=== PATIENT | female | born 1960 | race Hispanic/Latino ===

== ENCOUNTER 2018-06-05 13:28 | Emergency (ER) | payer SELFPAY ==
[2018-06-05] MEDS ORDERED: NORCO 5/325 PO ONE (16:49)
[2018-06-05] MEDS ORDERED: MOTRIN PO ONE (16:49)
[2018-06-05] MEDS ORDERED: ATROVENT IH ONE (16:50)
[2018-06-05] MEDS ORDERED: PROVENTIL IH ONE (16:50)
--- NOTE | 2018-06-05 16:55 | Emergency Department Report ---
HPI - General Chief Complaint: Upper Respiratory Infection Time Seen by Provider: 06/05/18 16:23 - HPI HPI: [address] The patient is a 58-year-old female presenting with chief complaint of cough and congestion. The patient states for the past 16 days she's had "cold" symptoms which include rhinorrhea, subjective fever and nasal congestion. The patient states then developed a cough productive of green sputum as well as body aches. Patient states [id number] medication has not helped. The patient states she has not sought medical attention with the above complaints yet. The patient gets her pain a score of 5-6/10 Location: [See above] Duration: [See above] Quality: Soreness, congestion Severity:5-6/10 Modifying factors: [see above] Context: [see above] Mode of transportation: [not driving] ED Past Medical Hx - Past Medical History Previous Medical History?: No - Surgical History Additional Surgical History: back surgery for staph infection - Family History Family history: no significant - Social History Smoking Status: Current Every Day Smoker (1/2 pack per day) Substance Use Type: None (denies illicit drug use) - Medications Home Medications: Home Medications Medication Instructions Recorded Confirmed Last Taken Type HYDROcodone/APAP 5-325 [[place] 1 each PO Q6HR PRN #12 tablet 11/04/13 Unknown Rx 5/325 mg] Sulfamethoxazole/Trimethoprim 1 each PO BID #20 tablet 11/04/13 Unknown Rx [Bactrim Ds] ALBUTEROL Inhaler (OR & NICU) 2 puff IH QID PRN #1 inhalation 06/05/18 Unknown Rx [Proair] Benzonatate [Tessalon Perles] 100 mg PO Q8HR #30 capsule 06/05/18 Unknown Rx Ciprofloxacin HCl [Ciprofloxacin 500 mg PO BID #20 tablet 06/05/18 Unknown Rx TAB] HYDROcodone/APAP 5-325 [[place] 1 - 2 each PO Q6HR PRN #14 tablet 06/05/18 Unknown Rx 5/325] Ibuprofen [Motrin 800 MG tab] 800 mg PO Q8HR PRN #20 tablet 06/05/18 Unknown Rx ED Review of Systems ROS: Stated complaint: SOB/WHEEZING Other details as noted in HPI Constitutional: fever Eyes: denies: eye pain ENT: congestion Respiratory: cough Cardiovascular: denies: chest pain Endocrine: no symptoms reported Gastrointestinal: denies: abdominal pain Genitourinary: denies: dysuria Musculoskeletal: myalgia Neurological: denies: headache Physical Exam - Physical Exam Vital Signs: Vital Signs 06/05/18 13:31 Temperature 98.5 F Pulse Rate 72 Respiratory 16 Rate Blood Pressure 146/85 O2 Sat by Pulse 96 Oximetry Physical Exam: GENERAL: The patient is well-developed well-nourished female sitting on stretcher appearing to be uncomfortable. [] HEENT: Normocephalic. Atraumatic. Extraocular motions are intact. Patient has moist mucous membranes. NECK: Supple. No meningitic signs are noted. Trachea midline CHEST/LUNGS: Faint expiratory wheeze left base. Occasional cough. There is no respiratory distress noted. HEART/CARDIOVASCULAR: Regular. There is no tachycardia. There is no gallop rub or murmur. ABDOMEN: Abdomen is soft, nontender. Patient has normal bowel sounds. There is no abdominal distention. SKIN: There is no rash. There is no edema. There is no diaphoresis. NEURO: The patient is awake, alert, and oriented. The patient is cooperative. The patient has normal speech MUSCULOSKELETAL: There is no evidence of acute injury. ED Course Vital Signs 06/05/18 13:31 Temperature 98.5 F Pulse Rate 72 Respiratory 16 Rate Blood Pressure 146/85 O2 Sat by Pulse 96 Oximetry ED Medical Decision Making - Lab Data Result diagrams: 06/05/18 16:55 06/05/18 16:55 Laboratory Tests 06/05/18 06/05/18 06/05/18 16:48 16:55 16:55 WBC 12.1 H RBC 5.07 H Hgb 15.2 H Hct 44.7 H MCV 88 MCH 30 MCHC 34 RDW 14.1 Plt Count 281 Lymph % (Auto) 30.7 Caroline % (Auto) 6.2 Eos % (Auto) 6.3 H Baso % (Auto) 1.5 Lymph # 3.7 Caroline # 0.7 Eos # 0.8 H Baso # 0.2 H Seg Neutrophils % 55.3 Seg Neutrophils # 6.7 Sodium 140 Potassium 4.0 Chloride 103.3 Carbon Dioxide 25 Anion Gap 16 BUN 7 Creatinine 0.7 Estimated GFR > 60 BUN/Creatinine Ratio 10 Glucose 99 Calcium 9.6 Influenza A (Rapid) Negative Influenza B (Rapid) Negative - Radiology Data Radiology results: report reviewed (chest x-ray), image reviewed (chest x-ray) interpreted by me: Chest x-ray-no definite focal infiltrates, no pneumothorax [facility] [address] [place] [address] XRay Report Signed Patient: GINGER CUMMINS MR#: [id number] : 1960 Acct:[id number] Age/Sex: 58 / F ADM Date: 06/05/18 Loc: ED Attending Dr: Ordering Physician: CLINT VELAZCO MD Date of Service: 06/05/18 Procedure(s): XR chest routine 2V Accession Number(s): [id number] cc: CLINT VELAZCO MD Fluoro Time In Minutes: FINAL REPORT EXAM: XR CHEST ROUTINE 2V HISTORY: productive cough TECHNIQUE: PA and lateral views of the chest Comparison: None FINDINGS: There is prominence of the interstitial markings in both lungs. There is the appearance of peribronchial thickening in the perihilar regions bilaterally which may represent changes of peribronchial pulmonary infiltrates. There is no evidence of pneumothorax or pleural fluid collection. The cardiomediastinal silhouette is normal in appearance. The bony structures are notable for dextrocurvature of the thoracic spine. IMPRESSION: 1. Peribronchial thickening which may represent changes of peribronchial pulmonary infiltrates in the perihilar regions bilaterally. 2. Dextrocurvature thoracic spine. Transcribed By: ED Dictated By: ELEAZAR ISIDRO MD Electronically Authenticated By: ELEAZAR ISIDRO MD Signed Date/Time: 06/05/181718 DD/ 18 TD/TT: 06/05/181718 - Differential Diagnosis influenza, sinusitis, bronchitis, Critical care attestation.: If time is entered above; I have spent that time in minutes in the direct care of this critically ill patient, excluding procedure time. ED Disposition Clinical Impression: Acute bronchitis, Acute URI Disposition: DC-01 TO HOME OR SELFCARE Is pt being admited?: No Does the pt Need Aspirin: No Condition: Stable Instructions: Acute Bronchitis (ED) Additional Instructions: Return to the emergency department immediately should you develop worsening symptoms, fever, inability to tolerate food or liquid or any other concerns. Prescriptions: ALBUTEROL Inhaler (OR & NICU) [Proair] 2 puff IH QID PRN #1 inhalation PRN Reason: Shortness Of Breath Benzonatate [Tessalon Perles] 100 mg PO Q8HR #30 capsule Ciprofloxacin HCl [Ciprofloxacin TAB] 500 mg PO BID #20 tablet HYDROcodone/APAP 5-325 [[place] 5/325] 1 - 2 each PO Q6HR PRN #14 tablet PRN Reason: Pain Ibuprofen [Motrin 800 MG tab] 800 mg PO Q8HR PRN #20 tablet PRN Reason: Pain, Moderate (4-6) Referrals: PRIMARY CARE,MD [Primary Care Provider] - 3-5 Days [facility] [Outside] - 3-5 Days Time of Disposition: 18:42
[2018-06-05 17:03] LABS: Basophils # (Auto) 0.2 K/mm3 (0.0-0.1); Basophils % (Auto) 1.5 % (0.0-1.8); Eosinophils # (Auto) 0.8 K/mm3 (0.0-0.4); Eosinophils % (Auto) 6.3 % (0.0-4.3); Hematocrit 44.7 % (30.3-42.9); Hemoglobin 15.2 gm/dl (10.1-14.3); Lymphocytes # (Auto) 3.7 K/mm3 (1.2-5.4); Lymphocytes % (Auto) 30.7 % (13.4-35.0); Mean Corpuscular HGB Conc 34 % (30-34); Mean Corpuscular Hemoglobin 30 pg (28-32); Mean Corpuscular Volume 88 fl (79-97); Monocytes # (Auto) 0.7 K/mm3 (0.0-0.8); Monocytes % (Auto) 6.2 % (0.0-7.3); Platelet Count 281 K/mm3 (140-440); Red Blood Count 5.07 M/mm3 (3.65-5.03); Red Cell Distribution Width 14.1 % (13.2-15.2)
--- NOTE | 2018-06-05 17:20 | XRay Report ---
FINAL REPORT EXAM: XR CHEST ROUTINE 2V HISTORY: productive cough TECHNIQUE: PA and lateral views of the chest Comparison: None FINDINGS: There is prominence of the interstitial markings in both lungs. There is the appearance of peribronchial thickening in the perihilar regions bilaterally which may represent changes of peribronchial pulmonary infiltrates. There is no evidence of pneumothorax or pleural fluid collection. The cardiomediastinal silhouette is normal in appearance. The bony structures are notable for dextrocurvature of the thoracic spine. IMPRESSION: 1. Peribronchial thickening which may represent changes of peribronchial pulmonary infiltrates in the perihilar regions bilaterally. 2. Dextrocurvature thoracic spine.
[2018-06-05 17:26] LABS: BUN/Creatinine Ratio 10; Blood Urea Nitrogen 7 mg/dL (7-17); Calcium 9.6 mg/dL (8.4-10.2); Hemolysis Index 4
[2018-06-05 18:50] VITALS: BP 140/81
== END 2018-06-05 18:49 | disposition home or self-care (01) ==
LOC: ED 13:28
DX: J20.9 Acute bronchitis, unspecified (principal); J06.9 Acute upper respiratory infection, unspecified; F17.200 Nicotine dependence, unspecified, uncomplicated
CPT/HCPCS: 36415; 71046; 80048; 85025; 87400; 94640

== ENCOUNTER 2018-06-08 20:16 | Emergency (ER) | payer SELFPAY ==
[2018-06-08 21:42] LABS: Hematocrit 42.1 % (30.3-42.9); Hemoglobin 14.9 gm/dl (10.1-14.3); Mean Corpuscular HGB Conc 35 % (30-34); Mean Corpuscular Hemoglobin 31 pg (28-32); Mean Corpuscular Volume 87 fl (79-97); Platelet Count 271 K/mm3 (140-440); Red Blood Count 4.83 M/mm3 (3.65-5.03); Red Cell Distribution Width 13.8 % (13.2-15.2)
[2018-06-08 21:58] LABS: BUN/Creatinine Ratio 10; Blood Urea Nitrogen 7 mg/dL (7-17); Calcium 9.5 mg/dL (8.4-10.2); Hemolysis Index 3
[2018-06-08 22:07] LABS: Basophils # (Auto) 0.1 K/mm3 (0.0-0.1); Eosinophils # (Auto) 0.9 K/mm3 (0.0-0.4); Eosinophils % (Auto) 8.8 % (0.0-4.3); Lymphocytes # (Auto) 3.5 K/mm3 (1.2-5.4); Lymphocytes % (Auto) 34.4 % (13.4-35.0); Monocytes # (Auto) 0.8 K/mm3 (0.0-0.8); Monocytes % (Auto) 7.4 % (0.0-7.3)
--- NOTE | 2018-06-08 22:42 | XRay Report ---
FINAL REPORT PROCEDURE: XR CHEST ROUTINE 2V TECHNIQUE: PA and lateral chest radiographs were obtained. CPT 39929 HISTORY: Shortness of breath COMPARISON: 06/05/2018 FINDINGS: Heart: Normal. Mediastinum/Vessels: Normal. Lungs/Pleural space: Lungs are hyperinflated. There are no confluent infiltrates or mass lesions. Pleural spaces are clear.. Bony thorax: No acute osseous abnormality. Other: IMPRESSION: COPD No acute pulmonary process.
[2018-06-08 22:55] LABS: Anisocytosis 1+; Platelet Estimate Consistent w Auto; Total Cells Counted 100
[2018-06-09] MEDS ORDERED: SOLU-Medrol IM ONE (00:13)
[2018-06-09] MEDS ORDERED: PROVENTIL IH ONE (00:14)
[2018-06-09] MEDS ORDERED: ATROVENT IH ONE (00:14)
[2018-06-09 00:17] VITALS: BP 154/86
--- NOTE | 2018-06-09 00:19 | Emergency Department Report ---
- General Chief Complaint: Dyspnea/Respdistress Stated Complaint: SOB Time Seen by Provider: 06/08/18 23:59 Source: patient Mode of arrival: Ambulatory Limitations: No Limitations - History of Present Illness Initial Comments: 58-year-old female with cough 2 weeks. Patient reports dry cough, denies fever , reports chest pain with cough. Patient reports she is having coughing spells which causes her to feel like she cannot catch her breath. Patient was seen in ED a few days ago and given prescriptions for albuterol inhaler, Cipro, [place], Motrin, Tessalon perles. Patient states she is not feeling any better. She is still having these coughing spells and shortness of breath. MD Complaint: cough -: week(s) (2) Severity: severe Consistency: intermittent Improves With: nothing Worsens With: nothing Associated Symptoms: cough, chest pain (with cough). denies: fever Treatments Prior to Arrival: antibiotics, other (tessalon perles, norco, albuterol, cipro) - Related Data Previous Rx's Medication Instructions Recorded Last Taken Type HYDROcodone/APAP 5-325 [[place] 1 each PO Q6HR PRN #12 tablet 11/04/13 Unknown Rx 5/325 mg] Sulfamethoxazole/Trimethoprim 1 each PO BID #20 tablet 11/04/13 Unknown Rx [Bactrim Ds] ALBUTEROL Inhaler (OR & NICU) 2 puff IH QID PRN #1 inhalation 06/05/18 Unknown Rx [Proair] Benzonatate [Tessalon Perles] 100 mg PO Q8HR #30 capsule 06/05/18 Unknown Rx Ciprofloxacin HCl [Ciprofloxacin 500 mg PO BID #20 tablet 06/05/18 Unknown Rx TAB] HYDROcodone/APAP 5-325 [[place] 1 - 2 each PO Q6HR PRN #14 tablet 06/05/18 Unknown Rx 5/325] Ibuprofen [Motrin 800 MG tab] 800 mg PO Q8HR PRN #20 tablet 06/05/18 Unknown Rx predniSONE [Prednisone] 50 mg PO DAILY #5 tablet 06/09/18 Unknown Rx Allergies Allergy/AdvReac Type Severity Reaction Status Date / Time No Known Allergies Allergy Unverified 11/04/13 20:53 ED Review of Systems ROS: Stated complaint: SOB Other details as noted in HPI Comment: All other systems reviewed and negative Constitutional: denies: fever Respiratory: cough, shortness of breath Cardiovascular: chest pain (with cough) Musculoskeletal: other (keith leg swelling or pain) ED Past Medical Hx - Past Medical History Previous Medical History?: No - Surgical History Past Surgical History?: No Additional Surgical History: back surgery for staph infection - Social History Smoking Status: Never Smoker - Medications Home Medications: Home Medications Medication Instructions Recorded Confirmed Last Taken Type HYDROcodone/APAP 5-325 [[place] 1 each PO Q6HR PRN #12 tablet 11/04/13 Unknown Rx 5/325 mg] Sulfamethoxazole/Trimethoprim 1 each PO BID #20 tablet 11/04/13 Unknown Rx [Bactrim Ds] ALBUTEROL Inhaler (OR & NICU) 2 puff IH QID PRN #1 inhalation 06/05/18 Unknown Rx [Proair] Benzonatate [Tessalon Perles] 100 mg PO Q8HR #30 capsule 06/05/18 Unknown Rx Ciprofloxacin HCl [Ciprofloxacin 500 mg PO BID #20 tablet 06/05/18 Unknown Rx TAB] HYDROcodone/APAP 5-325 [[place] 1 - 2 each PO Q6HR PRN #14 tablet 06/05/18 Unknown Rx 5/325] Ibuprofen [Motrin 800 MG tab] 800 mg PO Q8HR PRN #20 tablet 06/05/18 Unknown Rx predniSONE [Prednisone] 50 mg PO DAILY #5 tablet 06/09/18 Unknown Rx ED Physical Exam - General Limitations: No Limitations General appearance: alert, in no apparent distress - Head Head exam: Present: atraumatic, normocephalic - Eye Eye exam: Present: normal appearance - ENT ENT exam: Present: mucous membranes moist - Neck Neck exam: Present: normal inspection - Respiratory Respiratory exam: Present: normal lung sounds bilaterally, chest wall tenderness , other (pt actively coughing, nonproductive cough). Absent: respiratory distress - Cardiovascular Cardiovascular Exam: Present: regular rate, normal rhythm - GI/Abdominal GI/Abdominal exam: Present: soft. Absent: tenderness - Extremities Exam Extremities exam: Absent: pedal edema, calf tenderness - Neurological Exam Neurological exam: Present: alert, oriented X3 - Psychiatric Psychiatric exam: Present: normal affect, normal mood - Skin Skin exam: Present: warm, dry, intact ED Course Vital Signs 06/08/18 06/09/18 06/09/18 21:03 00:16 00:46 Temperature 97.9 F 98.2 F Pulse Rate 79 97 H Pulse Rate [ 80 Anterior Bilateral Throughout] Respiratory 18 25 H Rate Respiratory 25 H Rate [Anterior Bilateral Throughout] Blood Pressure 160/108 Blood Pressure 154/86 [Left] O2 Sat by Pulse 98 95 Oximetry ED Medical Decision Making - Lab Data Result diagrams: 06/08/18 21:18 06/08/18 21:18 - Radiology Data Radiology results: report reviewed, image reviewed - Medical Decision Making 58 year old female with bronchitis. Repeat chest x-ray negative. D-dimer negative. Solu-Medrol and neb treatment given here in ED. She is not hypoxic, no respiratory distress. Will give prescription for prednisone - Differential Diagnosis bronchitis, pneumonia, PE, pulm edema Critical care attestation.: If time is entered above; I have spent that time in minutes in the direct care of this critically ill patient, excluding procedure time. ED Disposition Clinical Impression: Bronchitis, Acute bronchitis Disposition: DC-01 TO HOME OR SELFCARE Is pt being admited?: No Condition: Stable Instructions: Acute Bronchitis (ED) Prescriptions: predniSONE [Prednisone] 50 mg PO DAILY #5 tablet Referrals: PRIMARY CARE, [Primary Care Provider] - 3-5 Days Time of Disposition: 01:57
== END 2018-06-09 02:10 | disposition home or self-care (01) ==
LOC: ED 20:16
DX: J20.9 Acute bronchitis, unspecified (principal)
CPT/HCPCS: 36415; 71046; 80048; 85007; 85025; 85379; 96372; 99284; J2930

== ENCOUNTER 2018-12-16 15:50 | Inpatient (IN) | payer SELFPAY ==
[2018-12-16] MEDS ORDERED: PROVENTIL IH ONE ×2 (16:07→16:55)
[2018-12-16] MEDS ORDERED: SOLU-Medrol IM ONE (16:08)
--- NOTE | 2018-12-16 16:10 | Emergency Department Report ---
Chief Complaint: Dyspnea/Respdistress Stated Complaint: MENDOZA Time Seen by Provider: 12/16/18 16:02 - HPI History of Present Illness: AC COPD RECENT DC FROM HOSP SHE DID NOT GET MEDS FILLED ON FOLLOW UP IN IN TRIAGE CO SOB SHE IS BREATHING FAST NO FEVER NKDA PMH CIG SMOKER COPD MSE COMPLETED - Exam Vital Signs: Vital Signs 12/16/18 16:01 Temperature 97.9 F Pulse Rate 92 H Respiratory 26 H Rate Blood Pressure 152/85 [Right] O2 Sat by Pulse 95 Oximetry MSE screening note: Focused history and physical exam performed. Due to findings the following was ordered: ED Disposition for MSE Condition: Stable
[2018-12-16] MEDS ORDERED: MAGNESIUM SULFATE 2GM/50ML 2 GM/50 ML BAG IV ONE (16:47)
[2018-12-16] MEDS ORDERED: ATROVENT IH ONE (16:55)
--- NOTE | 2018-12-16 16:57 | Emergency Department Report ---
HPI - General Chief Complaint: Dyspnea/Respdistress Time Seen by Provider: 12/16/18 16:02 - HPI HPI: Room 3 The patient is a 58-year-old female presenting with a chief complaint respiratory the patient states her symptoms began 5 days ago with rhinorrhea. The patient states she began taking Claritin within her rhinorrhea became thick. The patient states 2 days ago she developed increased work of breathing headache and shortness of breath. Patient states she is taking multiple nebulizers but has not helped. Patient states she's had a cough productive of clear sputum for the past 2-3 days. Patient denies history of fever. Location: Lungs Duration: [See above] Quality: Shortness of breath Severity: Moderate Modifying factors: [see above] Context: [see above] Mode of transportation: [not driving] ED Past Medical Hx - Surgical History Additional Surgical History: back surgery for staph infection - Family History Family history: no significant - Social History Smoking Status: Current Every Day Smoker (1/3 pack per day) Substance Use Type: None - Medications Home Medications: Home Medications Medication Instructions Recorded Confirmed Last Taken Type ALBUTEROL Inhaler (OR & NICU) 2 puff IH QID PRN #1 inhalation 10/09/18 Unknown Rx [ProAir HFA Inhaler] Benzonatate [Tessalon Perles] 100 mg PO Q8HR #14 capsule 10/09/18 Unknown Rx Budesoni/Formotero 160-4.5(Nf) 1 puff IH BID 30 Days inha 10/09/18 Unknown Rx [Symbicort 160-4.5 (Nf)] Fluticasone [Flonase] 100 mcg NS QDAY #1 bottle 10/09/18 Unknown Rx Prednisone [predniSONE 10 mg 10 mg PO .TAPER #1 tab.ds.pk 10/09/18 Unknown Rx (6-Day Pack, 21 Tabs)] guaiFENesin [Robitussin] 200 mg PO Q6H PRN #14 oral.liqd 10/09/18 Unknown Rx ED Review of Systems ROS: Stated complaint: MENDOZA Other details as noted in HPI Constitutional: denies: fever Eyes: denies: eye pain ENT: other (rhinorrhea) Respiratory: cough, shortness of breath, wheezing Cardiovascular: denies: chest pain Endocrine: no symptoms reported Gastrointestinal: denies: abdominal pain Genitourinary: denies: dysuria Musculoskeletal: denies: back pain Neurological: headache Physical Exam - Physical Exam Vital Signs: Vital Signs 12/16/18 12/16/18 16:01 16:07 Temperature 97.9 F 97.9 F Pulse Rate 92 H 92 H Respiratory 26 H 16 Rate Blood Pressure 152/85 Blood Pressure 152/85 [Right] O2 Sat by Pulse 95 95 Oximetry Physical Exam: GENERAL: The patient is well-developed well-nourished female lying on stretcher not appearing to be in acute distress. [] HEENT: Normocephalic. Atraumatic. Extraocular motions are intact. Patient has moist mucous membranes. NECK: Supple. Trachea midline CHEST/LUNGS: Wheezing. HEART/CARDIOVASCULAR: Regular. There is no tachycardia. There is no gallop rub or murmur. ABDOMEN: Abdomen is soft, nontender. Patient has normal bowel sounds. There is no abdominal distention. SKIN: There is no rash. There is no diaphoresis. NEURO: The patient is awake, alert, and oriented. The patient is cooperative. The patient has normal speech MUSCULOSKELETAL: There is no evidence of acute injury. ED Course Vital Signs 12/16/18 12/16/18 16:01 16:07 Temperature 97.9 F 97.9 F Pulse Rate 92 H 92 H Respiratory 26 H 16 Rate Blood Pressure 152/85 Blood Pressure 152/85 [Right] O2 Sat by Pulse 95 95 Oximetry ED Medical Decision Making - Lab Data Result diagrams: 12/16/18 16:49 12/16/18 16:49 Laboratory Tests 12/16/18 12/16/18 12/16/18 16:49 16:49 16:50 WBC 8.6 RBC 4.74 Hgb 14.9 H Hct 41.8 MCV 88 MCH 31 MCHC 36 H RDW 13.7 Plt Count 231 PT 12.9 INR 0.92 APTT 27.7 Sodium 140 Potassium 3.5 L Chloride 106.0 Carbon Dioxide 22 Anion Gap 16 BUN 11 Creatinine 0.7 Estimated GFR > 60 BUN/Creatinine Ratio 16 Glucose 114 H Calcium 9.8 Total Bilirubin 0.30 AST 13 ALT < 5 L Alkaline Phosphatase 56 Total Creatine Kinase CK-MB (CK-2) CK-MB (CK-2) Rel Index Troponin T NT-Pro-B Natriuret Pep Total Protein 6.9 Albumin 4.6 Albumin/Globulin Ratio 2.0 12/16/18 16:50 WBC RBC Hgb Hct MCV MCH MCHC RDW Plt Count PT INR APTT Sodium Potassium Chloride Carbon Dioxide Anion Gap BUN Creatinine Estimated GFR BUN/Creatinine Ratio Glucose Calcium Total Bilirubin AST ALT Alkaline Phosphatase Total Creatine Kinase 123 CK-MB (CK-2) 2.6 CK-MB (CK-2) Rel Index 2.1 Troponin T < 0.010 NT-Pro-B Natriuret Pep 81.06 Total Protein Albumin Albumin/Globulin Ratio Laboratory Tests 12/16/18 12/16/18 12/16/18 16:49 16:49 16:50 WBC 8.6 RBC 4.74 Hgb 14.9 H Hct 41.8 MCV 88 MCH 31 MCHC 36 H RDW 13.7 Plt Count 231 PT 12.9 INR 0.92 APTT 27.7 POC ABG pH POC ABG pCO2 POC ABG pO2 POC ABG HCO3 POC ABG Total CO2 POC ABG O2 Sat POC ABG Base Excess FiO2 Sodium 140 Potassium 3.5 L Chloride 106.0 Carbon Dioxide 22 Anion Gap 16 BUN 11 Creatinine 0.7 Estimated GFR > 60 BUN/Creatinine Ratio 16 Glucose 114 H Calcium 9.8 Total Bilirubin 0.30 AST 13 ALT < 5 L Alkaline Phosphatase 56 Total Creatine Kinase CK-MB (CK-2) CK-MB (CK-2) Rel Index Troponin T NT-Pro-B Natriuret Pep Total Protein 6.9 Albumin 4.6 Albumin/Globulin Ratio 2.0 Influenza A (Rapid) Influenza B (Rapid) 12/16/18 12/16/18 12/16/18 16:50 17:12 19:32 WBC RBC Hgb Hct MCV MCH MCHC RDW Plt Count PT INR APTT POC ABG pH 7.415 POC ABG pCO2 33.5 L POC ABG pO2 62 L POC ABG HCO3 21.5 POC ABG Total CO2 22 POC ABG O2 Sat 92 POC ABG Base Excess -3 FiO2 21 Sodium Potassium Chloride Carbon Dioxide Anion Gap BUN Creatinine Estimated GFR BUN/Creatinine Ratio Glucose Calcium Total Bilirubin AST ALT Alkaline Phosphatase Total Creatine Kinase 123 CK-MB (CK-2) 2.6 CK-MB (CK-2) Rel Index 2.1 Troponin T < 0.010 NT-Pro-B Natriuret Pep 81.06 Total Protein Albumin Albumin/Globulin Ratio Influenza A (Rapid) Negative Influenza B (Rapid) Negative - Radiology Data Radiology results: image reviewed (chest x-ray) interpreted by me: Chest x-ray-no definite focal infiltrates, no pneumothorax - Differential Diagnosis COPD exacerbation Critical care attestation.: If time is entered above; I have spent that time in minutes in the direct care of this critically ill patient, excluding procedure time. ED Disposition Clinical Impression: Shortness of breath, Hypoxia Disposition: OP ADMIT IP TO THIS HOSP Is pt being admited?: Yes Does the pt Need Aspirin: Yes Condition: Fair Referrals: PRIMARY CARE, [Primary Care Provider] - 3-5 Days Time of Disposition: 19:36 (hospitalist notified (Dr Bullock))
[2018-12-16 17:06] LABS: Hematocrit 41.8 % (30.3-42.9); Hemoglobin 14.9 gm/dl (10.1-14.3); Mean Corpuscular HGB Conc 36 % (30-34); Mean Corpuscular Volume 88 fl (79-97); Platelet Count 231 K/mm3 (140-440); Red Blood Count 4.74 M/mm3 (3.65-5.03); Red Cell Distribution Width 13.7 % (13.2-15.2)
[2018-12-16 17:25] LABS: INR 0.92 (0.87-1.13)
[2018-12-16 17:26] LABS: Partial Thromboplastin Time 27.7 Sec. (24.2-36.6)
[2018-12-16 17:27] LABS: Creatine Kinase MB 2.6 ng/mL (0.0-4.0)
[2018-12-16 17:43] LABS: Albumin 4.6 g/dL (3.9-5); BUN/Creatinine Ratio 16; Blood Urea Nitrogen 11 mg/dL (7-17); Calcium 9.8 mg/dL (8.4-10.2); Hemolysis Index 2
[2018-12-16 17:45] LABS: Alanine Aminotransferase < 5 units/L (7-56)
[2018-12-16] MEDS ORDERED: NORCO 5/325 PO ONE (18:09)
--- NOTE | 2018-12-16 19:37 | History and Physical Report ---
History of Present Illness Chief complaint: I cant breathe History of present illness: 58 YO Female with Nicotine Dependence, COPD, Seasonal Allergies presents to ED for evaluation. Pt states that she has experienced shortness of breath over the past 3 days with worsening symptoms over the same time frame. Pt acknowledges rhinorrhea that is persistent despite use of antihistamines. Pt also acknowledges increased frequency of productive cough with clear sputum. Pt states that symptoms have not improved with nebulizer therapy. Pt also acknowledges chest discomfort with deep breathing, that also follows coughing ep isodes. Pt transported to [facility] ED via private vehicle. Pt seen and evaluated in ED and found to have COPD Exacerbation complicated by Acute Respiratory Failure, as well as Nicotine Dependence. Pt treated with Supplemental oxygen, nebulizer therapy, and admitted to Medical floor. Pt prior admission on 10/07/18 reviewed. All listed medication reconciled at time of admission. Pt acknowledges exposure to COPD exacerbation triggers. Pt counseled regarding smoking cessation. Past History Past Medical History: COPD Past Surgical History: No surgical history Social history: single, smoking Family history: hypertension Medications and Allergies Allergies Allergy/AdvReac Type Severity Reaction Status Date / Time No Known Allergies Allergy Verified 12/16/18 16:09 Home Medications Medication Instructions Recorded Confirmed Last Taken Type ALBUTEROL Inhaler (OR & NICU) 2 puff IH QID PRN #1 inhalation 10/09/18 Unknown Rx [ProAir HFA Inhaler] Benzonatate [Tessalon Perles] 100 mg PO Q8HR #14 capsule 10/09/18 Unknown Rx Budesoni/Formotero 160-4.5(Nf) 1 puff IH BID 30 Days inha 10/09/18 Unknown Rx [Symbicort 160-4.5 (Nf)] Fluticasone [Flonase] 100 mcg NS QDAY #1 bottle 10/09/18 Unknown Rx Prednisone [predniSONE 10 mg 10 mg PO .TAPER #1 tab.ds.pk 10/09/18 Unknown Rx (6-Day Pack, 21 Tabs)] guaiFENesin [Robitussin] 200 mg PO Q6H PRN #14 oral.liqd 10/09/18 Unknown Rx Review of Systems Constitutional: no weight loss, no weight gain, no fever, no chills Ears, nose, mouth and throat: no ear pain, no ear discharge, no tinnitis, no decreased hearing, no nose pain Breasts: no change in shape, no swelling, no mass Cardiovascular: no chest pain, no orthopnea, no palpitations, no rapid/irregular heart beat, no edema Respiratory: cough, cough with sputum, excessive sputum, shortness of breath, wheezing, pleurisy Gastrointestinal: no nausea, no vomiting, no diarrhea, no constipation Genitourinary Female: no pelvic pain, no flank pain, no menorrhagia, no dysuria, no urinary frequency, no urgency Rectal: no pain, no incontinence, no bleeding Musculoskeletal: no neck stiffness, no neck pain, no shooting arm pain, no arm numbness/tingling, no low back pain Integumentary: no rash, no pruritis, no redness, no sores, no wounds Neurological: no paralysis, no weakness, no parathesias, no numbness, no tingling Psychiatric: no anxiety, no memory loss, no change in sleep habits, no sleep disturbances, no insomnia, no hypersomnia Endocrine: no cold intolerance, no heat intolerance, no polyphagia, no excessive thirst, no polydipsia Hematologic/Lymphatic: no easy bruising, no easy bleeding, no lymphadenopathy Allergic/Immunologic: no urticaria, no allergic rhinitis, no persistent infections, no angioedema Exam - Constitutional Vitals: Temp Pulse Resp BP Pulse Ox 97.9 F 83 16 125/61 90 12/16/18 16:07 12/16/18 18:58 12/16/18 18:58 12/16/18 19:15 12/16/18 19:15 General appearance: Present: mild distress - EENT Eyes: Present: PERRL ENT: hearing intact, clear oral mucosa - Neck Neck: Present: supple, normal ROM - Respiratory Respiratory effort: labored Respiratory: bilateral: diminished, rhonchi, wheezing - Cardiovascular Heart Sounds: Present: S1 & S2. Absent: rub, click - Extremities Extremities: pulses symmetrical, No edema Peripheral Pulses: within normal limits - Abdominal General gastrointestinal: Present: soft, non-tender, non-distended, normal bowel sounds Female genitourinary: Present: normal - Integumentary Integumentary: Present: clear, warm, dry - Musculoskeletal Musculoskeletal: gait normal, strength equal bilaterally - Psychiatric Psychiatric: appropriate mood/affect, intact judgment & insight - Neurologic Neurologic: CNII-XII intact, moves all extremities Results - Labs CBC & Chem 7: 0405/19 16:49 12/16/18 16:49 Labs: Abnormal lab results 12/16/18 12/16/18 12/16/18 Range/Units 16:49 16:49 19:32 Hgb 14.9 H (10.1-14.3) gm/dl MCHC 36 H (30-34) % POC ABG pCO2 33.5 L (35-45) POC ABG pO2 62 L (80-105) Potassium 3.5 L (3.6-5.0) mmol/L Glucose 114 H (65-100) mg/dL ALT < 5 L (7-56) units/L Assessment and Plan - Patient Problems (1) Acute respiratory failure Current Visit: No Status: Acute Qualifiers: Respiratory failure complication: hypoxia Qualified Code(s): J96.01 - Acute respiratory failure with hypoxia Plan to address problem: Supplemental oxygen, nebulizer therapy, NIPPV as clinically indicated, ABG, smoking cessation, CBC, CTA chest to evaluated for thromboembolic disease. (2) COPD exacerbation Current Visit: No Status: Acute Plan to address problem: Iv steroid therapy, supplemental oxygen, nebulizer therapy, pulse oximetry, chest x ray. (3) Nicotine dependence Current Visit: No Status: Chronic Qualifiers: Nicotine product type: cigarettes Substance use status: in withdrawal Qualified Code(s): F17.213 - Nicotine dependence, cigarettes, with withdrawal Plan to address problem: Nicotine transdermal patch, supportive care, smoking cessation counseleing, Pt informed regarding risk of cardiac arrythmia if she smokes cigarettes while she is using nicotine patch. Pt acknowledges understanding. (4) DVT prophylaxis Current Visit: No Status: Acute Plan to address problem: SCD to BLE while in bed, prophylactic lovenox
[2018-12-16] MEDS ORDERED: ROBITUSSIN PO PRN (19:41)
--- NOTE | 2018-12-16 19:46 | XRay Report ---
PROCEDURE: XR CHEST ROUTINE 2V TECHNIQUE: PA and lateral views of the chest were obtained. HISTORY: COUGH COMPARISONS: Prior chest x-ray 10/06/2018 FINDINGS: Heart size and pulmonary vasculature appear normal. No focal infiltrates masses or effusions are seen . No evidence of pneumothorax. No acute bone abnormalities are identified. Lungs appear mildly hyperi nflated. IMPRESSION: Mild hyperinflation otherwise negative exam. No acute abnormalities identified.. This document is electronically signed by Grant Padilla MD., December 16 2018 07:44:00 PM ET
[2018-12-16] MEDS ORDERED: PROVENTIL IH PRN (20:30)
[2018-12-16] MEDS ORDERED: SODIUM CHLORIDE FLUSH SYRINGE 10 ML IV PRN (20:30)
[2018-12-16] MEDS ORDERED: ZOFRAN IV PRN (20:30)
[2018-12-16] MEDS ORDERED: HABITROL TD ONE (21:00)
[2018-12-16] MEDS ORDERED: NON-FORMULARY (Budesoni/Formotero 160-4.5(Nf) 1 PUFF) IH SCH (22:00)
--- NOTE | 2018-12-16 22:02 | Cat Scan Report ---
PROCEDURE: CT ANGIO CHEST HISTORY: dypsnea FINDINGS: Preliminary report: Contrast-enhanced CT angiography of the chest was performed following the intravenous administration of iodinated contrast. These images demonstrate no CT evidence of pulmonary thromboembolic disease. There is no aortic disse ction. The ascending thoracic aorta is top normal in size at 3.4 cm. There is no acute consolidative pulmonary infiltrate. There is a granuloma in the posterior aspect of the right upper lobe, sagittal image 127. There are other calcified granulomas the left lower lobe p artially calcified nodule image 75. There is a right upper lobe noncalcified pulmonary nodule, image 32, 0.4 cm. there is a right lower l obe pulmonary nodule, image 90, 0.4 cm. There is a right lower lobe pulmonary nodule image 51 0.5 cm. there is a left lower lobe noncalcified nodule, image 76, 0.5 cm There are endplate degenerative changes at all levels of the mid and lower thoracic spine. There is a sclerotic density within T8, 1.5 cm, not definitively characterized but likely bone island There is a 0.4 cm right lobe thyroid nodule, likely cyst In the upper abdomen the adrenal glands are within normal limits. The visualized portion of the liver and spleen are unremarkable. IMPRESSION: No CT evidence of pulmonary thromboembolic disease Calcified pulmonary granulomas. There are also scattered bilateral noncalcified pulmonary nodules, no t characterized. Consider follow-up chest CT in 6 months or as clinically indicated. This document is electronically signed by Anish Pierson MD., December 16 2018 10:01:06 PM ET
[2018-12-16] MEDS: SODIUM CHLORIDE FLUSH SYRINGE 10 ML IV SCH (22:05)
[2018-12-16] MEDS: TESSALON PERLES PO SCH (22:05)
[2018-12-16] MEDS ORDERED: SOLU-Medrol ONE (22:10)
[2018-12-16] MEDS ORDERED: TESSALON PERLES PO ONE (22:11)
[2018-12-16] MEDS: SOLU-Medrol IV SCH (22:12)
[2018-12-16] MEDS ORDERED: LOVENOX SUB-Q ONE (22:17)
[2018-12-16] MEDS ORDERED: PEPCID ONE (22:18)
[2018-12-16] MEDS: PEPCID PO SCH (22:20)
[2018-12-16] MEDS: BROVANA NEBU IH SCH (22:22)
[2018-12-16] MEDS: PULMICORT IH SCH (22:22)
[2018-12-16] MEDS: LOVENOX SUB-Q SCH (22:23)
[2018-12-17] MEDS: TESSALON PERLES PO SCH ×3 (05:51→21:25)
[2018-12-17 06:05] LABS: BUN/Creatinine Ratio 13; Blood Urea Nitrogen 10 mg/dL (7-17); Calcium 8.7 mg/dL (8.4-10.2); Hemolysis Index 13
[2018-12-17] MEDS: PULMICORT IH SCH ×2 (07:51→20:11)
[2018-12-17] MEDS: BROVANA NEBU IH SCH ×2 (07:55→20:11)
[2018-12-17] MEDS: FLONASE NS SCH (09:39)
[2018-12-17] MEDS: SODIUM CHLORIDE FLUSH SYRINGE 10 ML IV SCH ×2 (09:40→21:14)
[2018-12-17] MEDS: SOLU-Medrol IV SCH ×2 (09:40→21:14)
[2018-12-17] MEDS: ZITHROMAX 500 MG in NACL 0.9% 250ML 250 ML IV SCH (09:44)
[2018-12-17] MEDS: PEPCID PO SCH ×2 (10:24→21:13)
[2018-12-17] MEDS: TYLENOL PO PRN ×2 (11:10→19:44)
--- NOTE | 2018-12-17 11:24 | Consultation ---
History of Present Illness Reason for consult: dyspnea, COPD, other (pulmonary nodules) History of present illness: 58-year-old female admitted to the hospital with history of progressive shortness of breath associated with rhinorrhea and recent allergies. Physical examination of this patient and past 6 months due to COPD exacerbation. She is an active smoker being seen by pulmonary already in June last year. Patient complains of some runny nose and chest congestion but no fever. Wheezing and coughing at home. She had decreased her smoking but, complained that she had not been able to get inhalers and smoking cessation medication, because lack of insurance. No additional complaints. Past History Past Medical History: COPD Past Surgical History: No surgical history Social history: single, smoking Family history: hypertension Medications and Allergies Allergies Allergy/AdvReac Type Severity Reaction Status Date / Time No Known Allergies Allergy Verified 12/16/18 16:09 Home Medications Medication Instructions Recorded Confirmed Last Taken Type No Known Home Medications [No 12/16/18 12/16/18 Unknown History Reported Home Medications] Active Meds: Active Medications Acetaminophen (Tylenol) 650 mg PO Q4H PRN PRN Reason: Pain MILD(1-3)/Fever >100.5/KITCHEN Last Admin: 12/17/18 11:10 Dose: 650 mg Documented by: Albuterol (Proventil) 2.5 mg IH Q4HRT PRN PRN Reason: Shortness Of Breath Arformoterol Tartrate (Brovana Nebu) 15 mcg IH Q12HRT [facility] Last Admin: 12/17/18 07:55 Dose: 15 mcg Documented by: Benzonatate (Tessalon Perles) 100 mg PO Q8HR [facility] Last Admin: 12/17/18 05:51 Dose: 100 mg Documented by: Budesonide (Pulmicort) 1 mg IH Q12HRT [facility] Last Admin: 12/17/18 07:51 Dose: 1 mg Documented by: Enoxaparin Sodium (Lovenox) 40 mg SUB-Q QDAY@2200 [facility] Last Admin: 12/16/18 22:23 Dose: 40 mg Documented by: Famotidine (Pepcid) 10 mg PO BID [facility] Last Admin: 12/17/18 10:24 Dose: Not Given Documented by: Fluticasone Propionate (Flonase) 100 mcg NS QDAY [facility] Last Admin: 12/17/18 09:39 Dose: 100 mcg Documented by: Guaifenesin (Robitussin) 200 mg PO Q6H PRN PRN Reason: Cough Azithromycin 500 mg/ Sodium (Chloride) 250 mls @ 250 mls/hr IV Q24HR [facility] Last Admin: 12/17/18 09:44 Dose: 250 mls/hr Documented by: Methylprednisolone Sodium Succinate (Solu-Medrol) 40 mg IV Q12HR [facility] Last Admin: 12/17/18 09:40 Dose: 40 mg Documented by: Ondansetron HCl (Zofran) 4 mg IV Q8H PRN PRN Reason: Nausea And Vomiting Sodium Chloride (Sodium Chloride Flush Syringe 10 Ml) 10 ml IV BID [facility] Last Admin: 12/17/18 09:40 Dose: 10 ml Documented by: Sodium Chloride (Sodium Chloride Flush Syringe 10 Ml) 10 ml IV PRN PRN PRN Reason: LINE FLUSH Physical Examination Vital signs: Vital Signs Temp Pulse Resp BP Pulse Ox 97.9 F 92 H 26 H 152/85 95 12/16/18 16:01 12/16/18 16:01 12/16/18 16:01 12/16/18 16:01 12/16/18 16:01 General appearance: no acute distress Eyes: non-icteric ENT: oropharynx moist Neck: supple, no JVD Ascultation: Bilateral: clear, diminished breath sounds, rales Cardiovascular: regular rate and rhythm Gastrointestinal: normoactive bowel sounds, non-distended Extremities: no cyanosis, no edema Musculoskeletal: no deformities normal mental status, non-focal exam mood appropriate, affect normal Results - Laboratory Findings CBC and BMP: 12/16/18 16:49 12/17/18 04:43 ABG POC ABG pH 7.415 (7.35-7.45) 12/16/18 19:32 POC ABG pCO2 33.5 (35-45) L 12/16/18 19:32 POC ABG pO2 62 (80-105) L 12/16/18 19:32 POC ABG HCO3 21.5 (22-26 mml/L) 12/16/18 19:32 POC ABG Total CO2 22 (23-27mmol/L) 12/16/18 19:32 POC ABG O2 Sat 92 12/16/18 19:32 PT/INR, D-dimer PT 12.9 Sec. (12.2-14.9) 12/16/18 16:50 INR 0.92 (0.87-1.13) 12/16/18 16:50 Abnormal lab findings: Abnormal Labs 12/16/18 12/16/18 12/16/18 16:49 16:49 19:32 Hgb 14.9 H MCHC 36 H POC ABG pCO2 33.5 L POC ABG pO2 62 L Potassium 3.5 L Glucose 114 H ALT < 5 L 12/17/18 04:43 Hgb MCHC POC ABG pCO2 POC ABG pO2 Potassium Glucose 186 H ALT - Diagnostic Findings Chest x-ray: report reviewed, image reviewed CT scan - chest: report reviewed, image reviewed Assessment and Plan COPD exacerbation Acute exacerbation chronic bronchitis Tobacco abuse Noncompliance with smoking cessation regimen Pulmonary nodules-some granulomas but others on the finding, larger 5 mm left l ower lobe Recommendations Albuterol 2.5 milligram nebulizations every 4-6 hours with or without i pratropium Solu-Medrol 40-60 mg IV every 6-8 hours Oxygen support via nasal cannula or mask to maintain oximetry over 93% I agree with radiology with follow-up CT scan in 6 months, noncontrast study. This was discussed with the patient detail and need for follow-up was emphasized Pulmonary office follow-up for COPD and CT/SPN's follow-up [facility] for outpatient assistance after discharge All findings discussed with the patient detail. All questions answered. Thanks
--- NOTE | 2018-12-17 11:31 | Progress Note ---
Assessment and Plan Assessment and plan: 58 YO Female with Nicotine Dependence, COPD, Seasonal Allergies presents to ED for evaluation. Pt states that she has experienced shortness of breath over the past 3 days with worsening symptoms over the same time frame. Pt acknowledges rhinorrhea that is persistent despite use of antihistamines. Pt also acknowledges increased frequency of productive cough with clear sputum. Pt states that symptoms have not improved with nebulizer therapy. Pt also acknowledges chest discomfort with deep breathing, that also follows coughing episodes. Pt transported to [facility] ED via private vehicle. Pt seen and evaluated in ED and found to have COPD Exacerbation complicated by Acute Respiratory Failure, as well as Nicotine Dependence. Pt treated with Supplemental oxygen, nebulizer therapy, and admitted to Medical floor. Pt prior admission on 10/07/18 reviewed. All listed medication reconciled at time of admission. Pt acknowledges exposure to COPD exacerbation triggers. Pt counseled regarding smoking cessation. - Patient Problems (1) Acute respiratory failure secondary to acute bronchitis Current Visit: No Status: Acute Qualifiers: Respiratory failure complication: hypoxia Qualified Code(s): J96.01 - Acute respiratory failure with hypoxia Plan to address problem: Supplemental oxygen, nebulizer therapy, ABG, smoking cessation, CBC, CTA chest to evaluated for thromboembolic disease. did not show any PE but pulmonary nodules and with recommendation for repeat in 6 months patient advised of the finding Pulmonary consulted Continue emperic abx Add, PPI and flonase, patient with seasonal allergies also and recently adopted a stray dog (2) COPD exacerbation Current Visit: No Status: Acute Plan to address problem: Iv steroid therapy, supplemental oxygen, nebulizer therapy, pulse oximetry, chest x ray. (3) Nicotine dependence Current Visit: No Status: Chronic Qualifiers: Nicotine product type: cigarettes Substance use status: in withdrawal Qualified Code(s): F17.213 - Nicotine dependence, cigarettes, with withdrawal Plan to address problem: Nicotine transdermal patch, supportive care, smoking cessation counseleing, Pt informed regarding risk of cardiac arrythmia if she smokes cigarettes while she is using nicotine patch. Pt acknowledges understanding. (4) DVT prophylaxis Current Visit: No Status: Acute Plan to address problem: SCD to BLE while in bed, prophylactic lovenox History Interval history: Patient seen and examined, still with cough, non productive, no new complaints. Hospitalist Physical - Physical exam Narrative exam: VITAL SIGNS: Reviewed. GENERAL: The patient appeared well nourished and normally developed, Vital signs as documented. HEAD: No signs of head trauma. EYES: Pupils are equal. Extraocular motions intact. EARS: Hearing grossly intact. MOUTH: Oropharynx is normal. NECK: No adenopathy, no JVD. No rales, or rhonchi. CARDIAC: Regular rate and rhythm. S1 and S2, without murmurs, gallops, or rubs. VASCULAR: No Edema. Peripheral pulses normal and equal in all extremities. ABDOMEN: Soft, non tender and non distended. No rebound or guarding, and no masses palpated. Bowel Sounds normal. MUSCULOSKELETAL: Good range of motion of all major joints. Extremities without clubbing, cyanosis or edema. NEUROLOGIC EXAM: Alert and oriented x 3 No focal sensory or strength deficits. Speech normal. Follows commands. PSYCHIATRIC: Mood normal. SKIN: No rash or lesions. - Constitutional Vitals: Temp Pulse Resp BP Pulse Ox 97.9 F 87 18 139/72 96 12/17/18 08:13 12/17/18 08:13 12/17/18 10:21 12/17/18 08:13 12/17/18 10:21 General appearance: Present: mild distress Results - Labs CBC & Chem 7: 12/16/18 16:49 12/17/18 04:43 Labs: Laboratory Last Values WBC 8.6 K/mm3 (4.5-11.0) 12/16/18 16:49 RBC 4.74 M/mm3 (3.65-5.03) 12/16/18 16:49 Hgb 14.9 gm/dl (10.1-14.3) H 12/16/18 16:49 Hct 41.8 % (30.3-42.9) 12/16/18 16:49 MCV 88 fl (79-97) 12/16/18 16:49 MCH 31 pg (28-32) 12/16/18 16:49 MCHC 36 % (30-34) H 12/16/18 16:49 RDW 13.7 % (13.2-15.2) 12/16/18 16:49 Plt Count 231 K/mm3 (140-440) 12/16/18 16:49 PT 12.9 Sec. (12.2-14.9) 12/16/18 16:50 INR 0.92 (0.87-1.13) 12/16/18 16:50 APTT 27.7 Sec. (24.2-36.6) 12/16/18 16:50 POC ABG pH 7.415 (7.35-7.45) 12/16/18 19:32 POC ABG pCO2 33.5 (35-45) L 12/16/18 19:32 POC ABG pO2 62 (80-105) L 12/16/18 19:32 POC ABG HCO3 21.5 (22-26 mml/L) 12/16/18 19:32 POC ABG Total CO2 22 (23-27mmol/L) 12/16/18 19:32 POC ABG O2 Sat 92 12/16/18 19:32 POC ABG Base Excess -3 ((-2) - (+3)mmol/L) 12/16/18 19:32 FiO2 21 % 12/16/18 19:32 Sodium 140 mmol/L (137-145) 12/17/18 04:43 Potassium 4.0 mmol/L (3.6-5.0) 12/17/18 04:43 Chloride 104.4 mmol/L (98-107) 12/17/18 04:43 Carbon Dioxide 22 mmol/L (22-30) 12/17/18 04:43 Anion Gap 18 mmol/L 12/17/18 04:43 BUN 10 mg/dL (7-17) 12/17/18 04:43 Creatinine 0.8 mg/dL (0.7-1.2) 12/17/18 04:43 Estimated GFR > 60 ml/min 12/17/18 04:43 BUN/Creatinine Ratio 13 % 12/17/18 04:43 Glucose 186 mg/dL (65-100) H 12/17/18 04:43 Calcium 8.7 mg/dL (8.4-10.2) 12/17/18 04:43 Total Bilirubin 0.30 mg/dL (0.1-1.2) 12/16/18 16:49 AST 13 units/L (5-40) 12/16/18 16:49 ALT < 5 units/L (7-56) L 12/16/18 16:49 Alkaline Phosphatase 56 units/L (35-129) 12/16/18 16:49 Total Creatine Kinase 123 units/L (30-135) 12/16/18 16:50 CK-MB (CK-2) 2.6 ng/mL (0.0-4.0) 12/16/18 16:50 CK-MB (CK-2) Rel Index 2.1 (0-4) 12/16/18 16:50 Troponin T < 0.010 ng/mL (0.00-0.029) 12/16/18 16:50 NT-Pro-B Natriuret Pep 81.06 pg/mL (0-900) 12/16/18 16:50 Total Protein 6.9 g/dL (6.3-8.2) 12/16/18 16:49 Albumin 4.6 g/dL (3.9-5) 12/16/18 16:49 Albumin/Globulin Ratio 2.0 % 12/16/18 16:49 Influenza A (Rapid) Negative (Negative) 12/16/18 17:12 Influenza B (Rapid) Negative (Negative) 12/16/18 17:12 Active Medications - Current Medications Current Medications: Generic Name Dose Route Start Last Admin Trade Name Freq PRN Reason Stop Dose Admin Acetaminophen 650 mg 12/16/18 20:30 12/17/18 11:10 Tylenol PO 650 mg Q4H PRN Administration Pain MILD(1-3)/Fever >100.5/KITCHEN Albuterol 2.5 mg 12/16/18 20:30 Proventil IH Q4HRT PRN Shortness Of Breath Arformoterol Tartrate 15 mcg 12/16/18 20:00 12/17/18 07:55 Brovana Nebu IH 15 mcg Q12HRT [facility] Administration Benzonatate 100 mg 12/16/18 22:00 12/17/18 05:51 Tessalon Perles PO 100 mg Q8HR [facility] Administration Budesonide 1 mg 12/16/18 20:00 12/17/18 07:51 Pulmicort IH 1 mg Q12HRT [facility] Administration Enoxaparin Sodium 40 mg 12/16/18 22:00 12/16/18 22:23 Lovenox SUB-Q 40 mg QDAY@2200 [facility] Administration Famotidine 10 mg 12/16/18 22:00 12/17/18 10:24 Pepcid PO Not Given BID [facility]I Fluticasone Propionate 100 mcg 12/17/18 10:00 12/17/18 09:39 Flonase NS 100 mcg QDAY [facility] Administration Guaifenesin 200 mg 12/16/18 19:41 Robitussin PO Q6H PRN Cough Azithromycin 500 mg/ Sodium 250 mls @ 250 mls/hr 12/17/18 10:00 12/17/18 0 9:44 Chloride IV 250 mls/hr Q24HR [facility] Administration Methylprednisolone Sodium Succinate 40 mg 12/16/18 22:00 12/17/18 09:40 Solu-Medrol IV 40 mg Q12HR [facility] Administration Ondansetron HCl 4 mg 12/16/18 20:30 Zofran IV Q8H PRN Nausea And Vomiting Sodium Chloride 10 ml 12/16/18 22:00 12/17/18 09:40 Sodium Chloride Flush Syringe 10 Ml IV 10 ml BID [facility] Administration Sodium Chloride 10 ml 12/16/18 20:30 Sodium Chloride Flush Syringe 10 Ml IV PRN PRN LINE FLUSH
[2018-12-17] MEDS ORDERED: AMBIEN PO PRN (14:38)
[2018-12-17] MEDS: LOVENOX SUB-Q SCH (21:17)
[2018-12-18] MEDS: TESSALON PERLES PO SCH (06:33)
[2018-12-18] MEDS: BROVANA NEBU IH SCH (08:05)
[2018-12-18] MEDS: PULMICORT IH SCH (08:05)
[2018-12-18 09:14] VITALS: BP 130/71
[2018-12-18] MEDS: SOLU-Medrol IV SCH (10:00)
[2018-12-18] MEDS: FLONASE NS SCH (10:00)
[2018-12-18] MEDS: SODIUM CHLORIDE FLUSH SYRINGE 10 ML IV SCH (10:00)
[2018-12-18] MEDS: PEPCID PO SCH (10:00)
[2018-12-18] MEDS: ZITHROMAX 500 MG in NACL 0.9% 250ML 250 ML IV SCH (10:03)
--- NOTE | 2018-12-18 10:50 | Discharge Summary ---
Providers - Providers Date of Admission: 12/16/18 20:30 Attending physician: KERA BAGLEY MD 12/17/18 08:12 Consult to Physician [CONS] Routine Comment: Consulting Provider: DULCE COLBY Physician Instructions: Reason For Exam: SHORTNESS OF BREATH, [facility] Reason for admission: COPD Exacerbation Condition: Stable Hospital course: 58 YO Female with Nicotine Dependence, COPD, Seasonal Allergies presents to ED for evaluation. Pt states that she has experienced shortness of breath over the past 3 days with worsening symptoms over the same time frame. Pt acknowledges rhinorrhea that is persistent despite use of antihistamines. Pt also acknowledges increased frequency of productive cough with clear sputum. Pt states that symptoms have not improved with nebulizer therapy. Pt also acknowledges chest discomfort with deep breathing, that also follows coughing episodes. Pt transported to [facility] ED via private vehicle. Pt seen and evaluated in ED and found to have COPD Exacerbation complicated by Acute Respiratory Failure, as well as Nicotine Dependence. Pt treated with Supplemental oxygen, nebulizer therapy, and admitted to Medical floor. Pt prior admission on 10/07/18 reviewed. All listed medication reconciled at time of admission. Pt acknowledges exposure to COPD exacerbation triggers. Pt counseled regarding smoking cessation. * Pulmonary evaluated the patient and placed the patient on Tapering steroids, antibiotics, and nebs * counselling provided to the patient about tobacco cessation and seasonal allergy (1) Acute respiratory failure secondary to acute bronchitis (2) COPD exacerbation (3) Nicotine dependence (4) Hypokalemia Disposition: PA-01 TO HOME OR SELFCARE Time spent for discharge: 35 MINS Core Measure Documentation - Palliative Care Palliative Care/ Comfort Measures: Not Applicable - Core Measures Any of the following diagnoses?: none Exam - Physical Exam Narrative exam: VITAL SIGNS: Reviewed. GENERAL: The patient appeared well nourished and normally developed, Vital si gns as documented. HEAD: No signs of head trauma. EYES: Pupils are equal. Extraocular motions intact. EARS: Hearing grossly intact. MOUTH: Oropharynx is normal. NECK: No adenopathy, no JVD. No rales, or rhonchi. CARDIAC: Regular rate and rhythm. S1 and S2, without murmurs, gallops, or rubs. VASCULAR: No Edema. Peripheral pulses normal and equal in all extremities. ABDOMEN: Soft, non tender and non distended. No rebound or guarding, and no masses palpated. Bowel Sounds normal. MUSCULOSKELETAL: Good range of motion of all major joints. Extremities without clubbing, cyanosis or edema. NEUROLOGIC EXAM: Alert and oriented x 3 No focal sensory or strength deficits. Speech normal. Follows commands. PSYCHIATRIC: Mood normal. SKIN: No rash or lesions. - Constitutional Vitals: Temp Pulse Resp BP Pulse Ox 98.0 F 68 20 130/71 94 12/18/18 08:50 12/18/18 08:50 12/18/18 08:50 12/18/18 08:50 12/18/18 08:50 Plan Follow up with: PRIMARY CAREMD [Referring] - 3-5 Days ADRIANE STONER MD [Staff Physician] - 7 Days Forms: Discharge Signature Page Prescriptions: Fluticasone/Salmeterol [Advair 250-50 Diskus] 1 each IH BID 30 Days blst.w.dev Prednisone [predniSONE 10 mg (6-Day Pack, 21 Tabs)] 10 mg PO .TAPER #1 tab.ds.pk ALBUTEROL Inhaler(NF) [VENTOLIN Inhaler(NF)] 1 puff IH QID PRN 30 Days inha PRN Reason: Shortness Of Breath Azithromycin [Zithromax TAB] 500 mg PO QDAY #5 tablet
== END 2018-12-18 13:58 | disposition home or self-care (01) | DRG 189 ==
LOC: ED 15:50 → 4A 20:30
PROVIDERS: ADMIT Internal Medicine; ATTEND Internal Medicine
PROC: 4A033R1 Measurement of Arterial Saturation, Peripheral, Percutaneous Approach (ICD-10-PCS; principal; 2018-12-16)
DX: J96.01 Acute respiratory failure with hypoxia (principal); J44.0 Chronic obstructive pulmonary disease with (acute) lower respiratory infection; J44.1 Chronic obstructive pulmonary disease with (acute) exacerbation; F17.213 Nicotine dependence, cigarettes, with withdrawal; J20.9 Acute bronchitis, unspecified; E87.6 Hypokalemia; Z71.6 Tobacco abuse counseling; Z82.49 Family history of ischemic heart disease and other diseases of the circulatory system; Z91.19 Patient's noncompliance with other medical treatment and regimen
CPT/HCPCS: 36415; 71046; 71275; 80048; 80053; 82550; 82553; 82803; 83880; 84484; 85027; 85610; 85730; 87116; 87400; 93005; 93010; 94640; 94760; 96365; 96366; 96372; 99406; G0378; J0456; J1650; J2920; J2930; J3475; J7050; Q9967

== ENCOUNTER 2019-02-02 09:40 | Inpatient (IN) | payer SELFPAY ==
[2019-02-02] MEDS ORDERED: MAGNESIUM SULFATE 2GM/50ML 2 GM/50 ML BAG IV ONE (10:35)
[2019-02-02] MEDS ORDERED: SOLU-Medrol IV ONE (10:35)
[2019-02-02] MEDS ORDERED: DUONEB *Not for PRN Use IH ONE (10:35)
--- NOTE | 2019-02-02 10:35 | Emergency Department Report ---
ED General Adult HPI - General Chief complaint: Dyspnea/Respdistress Stated complaint: SOB Time Seen by Provider: 02/02/19 10:23 Source: patient Mode of arrival: Ambulatory Limitations: No Limitations - History of Present Illness Initial comments: This is a 58-year-old lady with COPD on home O2. She states that she has used her home nebulizer treatments without adequate benefit. She is not currently on prednisone. She denies productive cough. She has not had chest pain. She denies fever and/or chills. -: Gradual, days(s) Consistency: constant Improves with: none Worsens with: none Associated Symptoms: denies other symptoms - Related Data Previous Rx's Medication Instructions Recorded Last Taken Type ALBUTEROL Inhaler(NF) [VENTOLIN 1 puff IH QID PRN 30 Days inha 12/18/18 Unknown Rx Inhaler(NF)] Azithromycin [Zithromax TAB] 500 mg PO QDAY #5 tablet 12/18/18 Unknown Rx Benzonatate [Tessalon Perles] 100 mg PO Q8HR capsule 12/18/18 Unknown Rx Fluticasone [Flonase] 100 mcg NS QDAY bottle 12/18/18 Unknown Rx Fluticasone/Salmeterol [Advair 1 each IH BID 30 Days blst.w.dev 12/18/18 Unknown Rx 250-50 Diskus] Prednisone [predniSONE 10 mg 10 mg PO .TAPER #1 tab.ds.pk 12/18/18 Unknown Rx (6-Day Pack, 21 Tabs)] guaiFENesin [Robitussin] 200 mg PO Q6H PRN oral.liqd 12/18/18 Unknown Rx Allergies Allergy/AdvReac Type Severity Reaction Status Date / Time No Known Allergies Allergy Verified 12/16/18 16:09 ED Review of Systems ROS: Stated complaint: SOB Other details as noted in HPI Constitutional: denies: chills, fever Eyes: denies: eye pain, eye discharge, vision change ENT: denies: ear pain, throat pain Respiratory: shortness of breath, wheezing. denies: cough Cardiovascular: denies: chest pain, palpitations Endocrine: no symptoms reported Gastrointestinal: denies: abdominal pain, nausea, diarrhea Genitourinary: denies: urgency, dysuria, discharge Musculoskeletal: denies: back pain, joint swelling, arthralgia Skin: denies: rash, lesions Neurological: denies: headache, weakness, paresthesias Psychiatric: denies: anxiety, depression Hematological/Lymphatic: denies: easy bleeding, easy bruising ED Past Medical Hx - Past Medical History Previous Medical History?: Yes Hx Congestive Heart Failure: No Hx Diabetes: No Hx Asthma: No Hx COPD: Yes - Surgical History Past Surgical History?: Yes Additional Surgical History: back surgery for staph infection - Social History Smoking Status: Current Every Day Smoker Substance Use Type: None - Medications Home Medications: Home Medications Medication Instructions Recorded Confirmed Last Taken Type ALBUTEROL Inhaler(NF) [VENTOLIN 1 puff IH QID PRN 30 Days inha 12/18/18 Unknown Rx Inhaler(NF)] Azithromycin [Zithromax TAB] 500 mg PO QDAY #5 tablet 12/18/18 Unknown Rx Benzonatate [Tessalon Perles] 100 mg PO Q8HR capsule 12/18/18 Unknown Rx Fluticasone [Flonase] 100 mcg NS QDAY bottle 12/18/18 Unknown Rx Fluticasone/Salmeterol [Advair 1 each IH BID 30 Days blst.w.dev 12/18/18 Unknown Rx 250-50 Diskus] Prednisone [predniSONE 10 mg 10 mg PO .TAPER #1 tab.ds.pk 12/18/18 Unknown Rx (6-Day Pack, 21 Tabs)] guaiFENesin [Robitussin] 200 mg PO Q6H PRN oral.liqd 12/18/18 Unknown Rx ED Physical Exam - General Limitations: No Limitations General appearance: alert, in no apparent distress - Head Head exam: Present: atraumatic, normocephalic - Eye Eye exam: Present: normal appearance. Absent: scleral icterus - ENT ENT exam: Present: mucous membranes moist - Neck Neck exam: Present: normal inspection. Absent: tenderness, meningismus - Respiratory Respiratory exam: Absent: respiratory distress - Cardiovascular Cardiovascular Exam: Present: regular rate, normal rhythm. Absent: systolic murmur, diastolic murmur, rubs, gallop - GI/Abdominal GI/Abdominal exam: Present: soft, normal bowel sounds - Extremities Exam Extremities exam: Present: normal inspection - Back Exam Back exam: Present: normal inspection - Neurological Exam Neurological exam: Present: alert, oriented X3 - Psychiatric Psychiatric exam: Present: normal affect, normal mood - Skin Skin exam: Present: warm, dry, intact, normal color. Absent: rash ED Course Vital Signs 02/02/19 02/02/19 02/02/19 09:53 10:32 10:46 Temperature 98.5 F 99.4 F Pulse Rate 81 77 Pulse Rate [ 74 Anterior Bilateral Throughout] Respiratory 24 18 Rate Respiratory 20 Rate [Anterior Bilateral Throughout] Blood Pressure 120/71 Blood Pressure 126/85 [Right] O2 Sat by Pulse 94 94 Oximetry 02/02/19 02/02/19 11:08 12:35 Temperature 99 F Pulse Rate 73 Pulse Rate [ 76 Anterior Bilateral Throughout] Respiratory 18 Rate Respiratory 18 Rate [Anterior Bilateral Throughout] Blood Pressure Blood Pressure 124/58 [Right] O2 Sat by Pulse 95 Oximetry - Reevaluation(s) Reevaluation #1: Persistent wheezing. Pulse oximetry still 94% on room air. Work of breathing is adequate. Patient speaking in full sentences. She is admitted by Dr. Bronson for further care. I will order another albuterol treatment. 02/02/19 12:47 ED Medical Decision Making - Lab Data Result diagrams: 02/02/19 10:49 02/02/19 10:49 Laboratory Results - last 24 hr 02/02/19 02/02/19 02/02/19 10:49 10:49 10:49 WBC 5.3 RBC 4.49 Hgb 14.0 Hct 40.0 MCV 89 MCH 31 MCHC 35 H RDW 13.8 Plt Count 146 Lymph % (Auto) 12.9 L [place] % (Auto) 14.3 H Eos % (Auto) 0.1 Baso % (Auto) 0.9 Lymph # 0.7 L [place] # 0.8 Eos # 0.0 Baso # 0.0 Seg Neutrophils % 71.8 H Seg Neutrophils # 3.8 PT 13.9 INR 1.01 APTT 29.4 Sodium 135 L Potassium 4.0 Chloride 97.2 L Carbon Dioxide 24 Anion Gap 18 BUN 5 L Creatinine 0.7 Estimated GFR > 60 BUN/Creatinine Ratio 7 Glucose 110 H Lactic Acid Calcium 8.5 Magnesium 1.70 Total Bilirubin 0.40 Direct Bilirubin < 0.2 AST 11 ALT < 5 L Alkaline Phosphatase 45 Troponin T NT-Pro-B Natriuret Pep Total Protein 6.3 Albumin 4.1 Albumin/Globulin Ratio 1.9 02/02/19 02/02/19 10:49 10:49 WBC RBC Hgb Hct MCV MCH MCHC RDW Plt Count Lymph % (Auto) [place] % (Auto) Eos % (Auto) Baso % (Auto) Lymph # [place] # Eos # Baso # Seg Neutrophils % Seg Neutrophils # PT INR APTT Sodium Potassium Chloride Carbon Dioxide Anion Gap BUN Creatinine Estimated GFR BUN/Creatinine Ratio Glucose Lactic Acid 1.00 Calcium Magnesium Total Bilirubin Direct Bilirubin AST ALT Alkaline Phosphatase Troponin T < 0.010 NT-Pro-B Natriuret Pep 229.2 Total Protein Albumin Albumin/Globulin Ratio - EKG Data EKG shows normal: sinus rhythm, axis, intervals, ST-T waves Rate: normal - EKG Data Interpretation: other (QS in V2 consider old ASMI, no acute ischemic changes) - Radiology Data Radiology results: report reviewed (no acute changes) Critical care attestation.: If time is entered above; I have spent that time in minutes in the direct care of this critically ill patient, excluding procedure time. ED Disposition Clinical Impression: Hypoxia, COPD exacerbation Disposition: - OP ADMIT IP TO THIS HOSP Is pt being admited?: Yes Does the pt Need Aspirin: Yes Condition: Stable Instructions: Chronic Obstructive Pulmonary Disease (ED) Referrals: PRIMARY CARE, [Primary Care Provider] - 3-5 Days Time of Disposition: 12:49
--- NOTE | 2019-02-02 11:03 | XRay Report ---
AP CHEST: HISTORY: Hypertension AP view of the chest demonstrates a normal mediastinal and cardiac contour with clear lungs and normal bony and soft tissue structures. IMPRESSION: Unremarkable AP chest. No significant change since 12/16/18.
[2019-02-02 11:07] LABS: Basophils % (Auto) 0.9 % (0.0-1.8); Eosinophils % (Auto) 0.1 % (0.0-4.3); Lymphocytes # (Auto) 0.7 K/mm3 (1.2-5.4); Lymphocytes % (Auto) 12.9 % (13.4-35.0); Mean Corpuscular HGB Conc 35 % (30-34); Mean Corpuscular Volume 89 fl (79-97); Monocytes # (Auto) 0.8 K/mm3 (0.0-0.8); Monocytes % (Auto) 14.3 % (0.0-7.3); Platelet Count 146 K/mm3 (140-440); Red Blood Count 4.49 M/mm3 (3.65-5.03); Red Cell Distribution Width 13.8 % (13.2-15.2)
[2019-02-02 11:34] LABS: Albumin 4.1 g/dL (3.9-5); BUN/Creatinine Ratio 7; Blood Urea Nitrogen 5 mg/dL (7-17); Calcium 8.5 mg/dL (8.4-10.2); Hemolysis Index 7
[2019-02-02 11:36] LABS: Alanine Aminotransferase < 5 units/L (7-56); Bilirubin,Direct < 0.2 mg/dL (0-0.2)
[2019-02-02 11:45] LABS: INR 1.01 (0.87-1.13); Partial Thromboplastin Time 29.4 Sec. (24.2-36.6)
[2019-02-02] MEDS ORDERED: TYLENOL PO ONE (12:35)
[2019-02-02] MEDS ORDERED: TYLENOL ONE (12:36)
[2019-02-02 12:58] LABS: Bilirubin,Urine NEG (Negative); Blood,Urine MOD (Negative); Color,Urine Yellow (Yellow); Mucus,Urine FEW /HPF; Protein,Urine <15 mg/dL mg/dL (Negative); Urobilinogen,Urine < 2.0 mg/dL (<2.0); WBC,Urine < 1.0 /HPF (0.0-6.0)
[2019-02-02] MEDS ORDERED: BABY ASPIRIN ONE (13:28)
[2019-02-02] MEDS: BABY ASPIRIN PO SCH (13:35)
[2019-02-02] MEDS ORDERED: DUONEB *Not for PRN Use IH SCH (21:15)
--- NOTE | 2019-02-02 21:41 | History and Physical Report ---
History of Present Illness Date of examination: 02/02/19 Date of admission: 02/02/19 12:16 Chief complaint: Shortness of breath and wheezing for 1 week History of present illness: 58-year-old female with history of COPD and allergic rhinitis comes in for increasing shortness of breath for last 1 week. Cough productive of mucoid yellow sputum. Not responding to home nebulizer treatments. Patient is on home oxygen. No fever or chills. No recent travel. No exacerbating or precipitating factors. Past Medical History Previous Medical History?: Yes COPD: Yes Surgical History Past Surgical History?: Yes Additional Surgical History: back surgery for staph infection Social History Smoking Status: Current Every Day Smoker Substance Use Type: None Family history hypertension Medications Home Medications: Home Medications Medication Instructions Recorded Confirmed Last Taken Type ALBUTEROL Inhaler(NF) [VENTOLIN 1 puff IH QID PRN 30 Days inha 12/18/18 Unknown Rx Inhaler(NF)] Azithromycin [Zithromax TAB] 500 mg PO QDAY #5 tablet 12/18/18 Unknown Rx Benzonatate [Tessalon Perles] 100 mg PO Q8HR capsule 12/18/18 Unknown Rx Fluticasone [Flonase] 100 mcg NS QDAY bottle 12/18/18 Unknown Rx Fluticasone/Salmeterol [Advair 1 each IH BID 30 Days blst.w.dev 12/18/18 Unknown Rx 250-50 Diskus] Prednisone [predniSONE 10 mg 10 mg PO .TAPER #1 tab.ds.pk 12/18/18 Unknown Rx (6-Day Pack, 21 Tabs)] guaiFENesin [Robitussin] 200 mg PO Q6H PRN oral.liqd 12/18/18 Unknown Rx Review of Systems ROS: Stated complaint: SOB Other details as noted in HPI Constitutional: denies: chills, fever Eyes: denies: eye pain, eye discharge, vision change ENT: denies: ear pain, throat pain Respiratory: shortness of breath, wheezing. denies: cough Cardiovascular: denies: chest pain, palpitations Endocrine: no symptoms reported Gastrointestinal: denies: abdominal pain, nausea, diarrhea Genitourinary: denies: urgency, dysuria, discharge Musculoskeletal: denies: back pain, joint swelling, arthralgia Skin: denies: rash, lesions Neurological: denies: headache, weakness, paresthesias Psychiatric: denies: anxiety, depression Hematological/Lymphatic: denies: easy bleeding, easy bruising 14 point review of systems done otherwise negative. Medications and Allergies Allergies Allergy/AdvReac Type Severity Reaction Status Date / Time No Known Allergies Allergy Verified 12/16/18 16:09 Home Medications Medication Instructions Recorded Confirmed Last Taken Type No Known Home Medications [No 02/02/19 02/02/19 Unknown History Reported Home Medications] Active Meds: Active Medications Albuterol/Ipratropium (Duoneb *Not For Prn Use*) 1 ampul IH Q6HRT [facility] Last Admin: 02/02/19 21:23 Dose: 1 ampul Documented by: Arformoterol Tartrate (Brovana Nebu) 15 mcg IH Q12HRT [facility] Aspirin (Baby Aspirin) 81 mg PO QDAY [facility] Last Admin: 02/02/19 13:35 Dose: 81 mg Documented by: Budesonide (Pulmicort) 0.5 mg IH Q12HRT [facility] Exam - Constitutional Vitals: Temp Pulse Resp BP Pulse Ox 98.2 F 78 20 109/64 92 02/02/19 17:02 02/02/19 21:32 02/02/19 21:32 02/02/19 17:02 02/02/19 21:11 General appearance: Present: mild distress, well-nourished - EENT Eyes: Present: PERRL ENT: hearing intact, clear oral mucosa - Neck Neck: Present: supple, normal ROM - Respiratory Respiratory effort: normal Respiratory: bilateral: diminished, rhonchi, wheezing - Cardiovascular Heart rate: 78 Rhythm: regular Heart Sounds: Present: S1 & S2. Absent: rub, click - Extremities Extremities: no ischemia, pulses intact, pulses symmetrical, No edema Peripheral Pulses: within normal limits - Abdominal General gastrointestinal: Present: soft, non-tender, non-distended, normal bowel sounds Female genitourinary: Present: normal - Integumentary Integumentary: Present: clear, warm, dry - Musculoskeletal Musculoskeletal: gait normal, strength equal bilaterally - Psychiatric Psychiatric: appropriate mood/affect, intact judgment & insight - Neurologic Neurologic: CNII-XII intact, moves all extremities - Allied Health Allied health notes reviewed: nursing, case management Results - Labs CBC & Chem 7: 02/02/19 10:49 02/02/19 10:49 Labs: Laboratory Last Values WBC 5.3 K/mm3 (4.5-11.0) 02/02/19 10:49 RBC 4.49 M/mm3 (3.65-5.03) 02/02/19 10:49 Hgb 14.0 gm/dl (10.1-14.3) 02/02/19 10:49 Hct 40.0 % (30.3-42.9) 02/02/19 10:49 MCV 89 fl (79-97) 02/02/19 10:49 MCH 31 pg (28-32) 02/02/19 10:49 MCHC 35 % (30-34) H 02/02/19 10:49 RDW 13.8 % (13.2-15.2) 02/02/19 10:49 Plt Count 146 K/mm3 (140-440) 02/02/19 10:49 Lymph % (Auto) 12.9 % (13.4-35.0) L 02/02/19 10:49 [place] % (Auto) 14.3 % (0.0-7.3) H 02/02/19 10:49 Eos % (Auto) 0.1 % (0.0-4.3) 02/02/19 10:49 Baso % (Auto) 0.9 % (0.0-1.8) 02/02/19 10:49 Lymph # 0.7 K/mm3 (1.2-5.4) L 02/02/19 10:49 [place] # 0.8 K/mm3 (0.0-0.8) 02/02/19 10:49 Eos # 0.0 K/mm3 (0.0-0.4) 02/02/19 10:49 Baso # 0.0 K/mm3 (0.0-0.1) 02/02/19 10:49 Seg Neutrophils % 71.8 % (40.0-70.0) H 02/02/19 10:49 Seg Neutrophils # 3.8 K/mm3 (1.8-7.7) 02/02/19 10:49 PT 13.9 Sec. (12.2-14.9) 02/02/19 10:49 INR 1.01 (0.87-1.13) 02/02/19 10:49 APTT 29.4 Sec. (24.2-36.6) 02/02/19 10:49 Sodium 135 mmol/L (137-145) L 02/02/19 10:49 Potassium 4.0 mmol/L (3.6-5.0) 02/02/19 10:49 Chloride 97.2 mmol/L (98-107) L 02/02/19 10:49 Carbon Dioxide 24 mmol/L (22-30) 02/02/19 10:49 18 mmol/L 02/02/19 10:49 BUN 5 mg/dL (7-17) L 02/02/19 10:49 0.7 mg/dL (0.7-1.2) 02/02/19 10:49 Estimated GFR > 60 ml/min 02/02/19 10:49 7 % 02/02/19 10:49 Glucose 110 mg/dL (65-100) H 02/02/19 10:49 Lactic Acid 1.00 mmol/L (0.7-2.0) 02/02/19 10:49 Calcium 8.5 mg/dL (8.4-10.2) 02/02/19 10:49 Magnesium 1.70 mg/dL (1.7-2.3) 02/02/19 10:49 0.40 mg/dL (0.1-1.2) 02/02/19 10:49 < 0.2 mg/dL (0-0.2) 02/02/19 10:49 AST 11 units/L (5-40) 02/02/19 10:49 ALT < 5 units/L (7-56) L 02/02/19 10:49 45 units/L (35-129) 02/02/19 10:49 < 0.010 ng/mL (0.00-0.029) 02/02/19 10:49 NT-Pro-B Natriuret Pep 229.2 pg/mL (0-900) 02/02/19 10:49 6.3 g/dL (6.3-8.2) 02/02/19 10:49 4.1 g/dL (3.9-5) 02/02/19 10:49 1.9 % 02/02/19 10:49 Yellow (Yellow) 02/02/19 12:12 Clear (Clear) 02/02/19 12:12 5.0 (5.0-7.0) 02/02/19 12:12 Ur Specific [place] 1.016 (1.003-1.030) 02/02/19 12:12 <15 mg/dl mg/dL (Negative) 02/02/19 12:12 Neg mg/dL (Negative) 02/02/19 12:12 80 mg/dL (Negative) 02/02/19 12:12 Mod (Negative) 02/02/19 12:12 Neg (Negative) 02/02/19 12:12 Neg (Negative) 02/02/19 12:12 < 2.0 mg/dL (<2.0) 02/02/19 12:12 Ur Leukocyte Esterase Neg (Negative) 02/02/19 12:12 < 1.0 /HPF (0.0-6.0) 02/02/19 12:12 3.0 /HPF (0.0-6.0) 02/02/19 12:12 U Epithel Cells (Auto) 3.0 /HPF (0-13.0) 02/02/19 12:12 Few /HPF 02/02/19 12:12 Short CBC 02/02/19 Range/Units 10:49 WBC 5.3 (4.5-11.0) K/mm3 Hgb 14.0 (10.1-14.3) gm/dl Hct 40.0 (30.3-42.9) % Plt Count 146 (140-440) K/mm3 BMP 02/02/19 10:49 Sodium 135 L Potassium 4.0 Chloride 97.2 L Carbon Dioxide 24 BUN 5 L Creatinine 0.7 Glucose 110 H Calcium 8.5 Cardiac Enzymes 02/02/19 Range/Units 10:49 Troponin T < 0.010 (0.00-0.029) ng/mL Liver Function 02/02/19 Range/Units 10:49 Total Bilirubin 0.40 (0.1-1.2) mg/dL Direct Bilirubin < 0.2 (0-0.2) mg/dL AST 11 (5-40) units/L ALT < 5 L (7-56) units/L Alkaline Phosphatase 45 (35-129) units/L Albumin 4.1 (3.9-5) g/dL Urine 05/23/19 Range/Units 12:12 Urine Color Yellow (Yellow) Urine pH 5.0 (5.0-7.0) Ur Specific [place] 1.016 (1.003-1.030) Urine Protein <15 mg/dl (Negative) mg/dL Urine Glucose (UA) Neg (Negative) mg/dL - Imaging and Cardiology EKG: report reviewed (sinus rhythm, 80/m, no acute ST-T wave changes) Chest x-ray: report reviewed (no acute findings) Assessment and Plan Advance Directives: Yes (full code) VTE prophylaxis?: Chemical Plan of care discussed with patient/family: Yes - Patient Problems (1) Acute respiratory failure Current Visit: No Status: Acute Qualifiers: Respiratory failure complication: hypoxia Qualified Code(s): J96.01 - Acute respiratory failure with hypoxia Plan to address problem: Patient has acute on chronic respiratory failure Patient is on home oxygen Patient needs frequent nebulizer treatments and IV Solu-Medrol and IV Levaquin (2) COPD exacerbation Current Visit: Yes Status: Acute Plan to address problem: IV antibiotics and IV Solu-Medrol and duo nebs 4 times a day and albuterol when necessary initiated (3) Allergic rhinitis Current Visit: Yes Status: Chronic Qualifiers: Allergic rhinitis seasonality: non-seasonal Plan to address problem: Continue Flonase (4) DVT prophylaxis Current Visit: No Status: Acute Plan to address problem: Lovenox 40 mg subcutaneous daily and GI prophylaxis
[2019-02-02] MEDS ORDERED: LEVAQUIN 750MG/150ML 750 MG/150 ML BAG IV SCH (22:00)
[2019-02-02] MEDS: SOLU-Medrol IV SCH (22:38)
[2019-02-02] MEDS ORDERED: TYLENOL PO PRN (23:04)
[2019-02-02] MEDS: MUCINEX ER PO SCH (23:42)
[2019-02-02 23:54] VITALS: BP 113/62
[2019-02-03] MEDS ORDERED: DUONEB *Not for PRN Use IH ONE ×2 (02:13→02:46)
[2019-02-03] MEDS: SOLU-Medrol IV SCH (06:19)
[2019-02-03] MEDS ORDERED: BROVANA NEBU IH SCH (08:00)
[2019-02-03] MEDS ORDERED: PULMICORT IH SCH (08:00)
[2019-02-03] MEDS: DUONEB *Not for PRN Use IH SCH ×2 (08:35→15:19)
--- NOTE | 2019-02-03 09:39 | Discharge Summary ---
Providers - Providers Date of Admission: 02/02/19 12:16 Attending physician: GEREMIAS SIDDIQUI MD Primary care physician: CREDIT BALANCE SPECIALIST Hospitalization Reason for admission: COPD exacerbation Condition: Stable Hospital course: 58-year-old female with history of COPD and allergic rhinitis comes in for increasing shortness of breath for last 1 week. Cough productive of mucoid yellow sputum. Not responding to home nebulizer treatments. Patient is on home oxygen. No fever or chills. No recent travel. No exacerbating or precipitating factors. patient was treated according to COPD protocol and by the time of examination patient didn't have any wheezing, SOB, saturating well on room air. Patient was given appropriate medication scripts and discharged home in a stable conditions. Disposition: DC-01 TO HOME OR SELFCARE Time spent for discharge: 32 minutes - Discharge Diagnoses (1) COPD exacerbation Status: Acute (2) Acute respiratory failure Status: Acute Qualifiers: Respiratory failure complication: hypoxia Qualified Code(s): J96.01 - Acute respiratory failure with hypoxia Core Measure Documentation - Palliative Care Palliative Care/ Comfort Measures: Not Applicable - Core Measures Any of the following diagnoses?: none Exam - Physical Exam Narrative exam: Not in cardiopulmonary distress. The patient appeared well nourished and normally developed. Vital signs as documented. Head exam is unremarkable. No scleral icterus . Neck is without jugular venous distension, thyromegaly, or carotid bruits. Lungs are clear to auscultation. Cardiac exam reveals regular rate and Rhythm. Abdominal exam reveals normal bowel sounds Extremities are nonedematous and both femoral and pedal pulses are normal. FLIGHT COMMUNICATIONS SPECIALIST: Alert and oriented 3. No focal weakness. - Constitutional Vitals: Temp Pulse Resp BP Pulse Ox 97.8 F 75 20 113/62 93 02/02/19 23:27 02/03/19 02:59 02/03/19 02:59 02/02/19 23:27 02/02/19 23:27 Plan Activity: no restrictions Weight Bearing Status: Full Weight Bearing Diet: regular Special Instructions: smoking cessation Additional Instructions: Patient followed at [facility] Follow up with: PRIMARY CARE, [Primary Care Provider] - 3-5 Days Prescriptions: guaiFENesin ER [Mucinex ER] 600 mg PO BID #10 tablet Prednisone [predniSONE 5 mg (6-Day Pack, 21 Tabs)] 5 mg PO .TAPER #1 tab.ds.pk Albuterol Sulfate [Proventil Hfa] 6.7 gm IH Q4H PRN #1 can PRN Reason: Dyspnea Budesonide [Pulmicort Respules] 0.5 mg IH Q12HRT #30 nebu Azithromycin [Zithromax Z-PHOEBE] 250 mg PO DAILY #6 tablet
[2019-02-03] MEDS: MUCINEX ER PO SCH (11:01)
[2019-02-03] MEDS: BABY ASPIRIN PO SCH (11:01)
== END 2019-02-03 13:30 | disposition home or self-care (01) | DRG 189 ==
LOC: ED 09:40 → 3A 12:16
PROVIDERS: ADMIT Internal Medicine; ATTEND Internal Medicine
DX: J96.01 Acute respiratory failure with hypoxia (principal); J44.1 Chronic obstructive pulmonary disease with (acute) exacerbation; F17.200 Nicotine dependence, unspecified, uncomplicated; J30.9 Allergic rhinitis, unspecified; Z82.49 Family history of ischemic heart disease and other diseases of the circulatory system; Z79.899 Other long term (current) drug therapy
CPT/HCPCS: 36415; 71045; 80048; 80076; 81001; 82140; 83735; 83880; 84484; 85025; 85610; 85730; 87116; 93005; 93010; 94640; G0378; J1956; J2930; J3475

== ENCOUNTER 2019-09-02 08:34 | Emergency (ER) | payer SELFPAY ==
[2019-09-02 08:40] VITALS: BP 143/79
--- NOTE | 2019-09-02 09:53 | XRay Report ---
CHEST 2 VIEWS INDICATION: MAIN: sob for 3 days. COMPARISON: 02/02/2019. FINDINGS: Support devices: None. Heart: Within normal limits. Lungs/Pleura: No acute air space or interstitial disease. No significant pleural effusion. IMPRESSION: No acute findings. Signer Name: Venu Markham MD Signed: 09/02/2019 9:48 AM Workstation Name: [id number]
[2019-09-02] MEDS ORDERED: LORazepam 1 MG TAB PO ONE (10:04)
--- NOTE | 2019-09-02 12:16 | Emergency Department Report ---
ED General Adult HPI - General Chief complaint: Dyspnea/Respdistress Stated complaint: MENDOZA Time Seen by Provider: 09/02/19 10:18 Source: patient Mode of arrival: Ambulatory Limitations: No Limitations - History of Present Illness Initial comments: 59-year-old female since emergency department complaining of cough came congestion and tingling to the fingers with hyperventilation was is been present for the last 2-3 days. Saw her primary care doctor on yesterday but but not yet able to fill the necessary prescriptions. States that the pharmacy closed before she could do so. She reports no change or worsening in symptoms no fever. No hemoptysis, hematemesis nor hematochezia. No chest pain no vomiting or diarrhea she's. She reports no swelling to the lower extremities and no foreign travel -: Gradual, days(s) (3) Location: chest Radiation: non-radiation Consistency: constant Improves with: none Worsens with: none Associated Symptoms: cough Treatments Prior to Arrival: none - Related Data Previous Rx's Medication Instructions Recorded Last Taken Type Albuterol Sulfate [Proventil Hfa] 6.7 gm IH Q4H PRN #1 can 02/03/19 Unknown Rx Azithromycin [Zithromax Z-PHOEBE] 250 mg PO DAILY #6 tablet 02/03/19 Unknown Rx Budesonide [Pulmicort Respules] 0.5 mg IH Q12HRT #30 nebu 02/03/19 Unknown Rx Prednisone [predniSONE 5 mg (6-Day 5 mg PO .TAPER #1 tab.ds.pk 02/03/19 Unknown Rx Pack, 21 Tabs)] guaiFENesin ER [Mucinex ER] 600 mg PO BID #10 tablet 02/03/19 Unknown Rx Benzonatate [Tessalon Perles] 100 mg PO Q8HR #20 capsule 09/02/19 Unknown Rx predniSONE [Deltasone] 50 mg PO QDAY #5 tab 09/02/19 Unknown Rx Allergies Allergy/AdvReac Type Severity Reaction Status Date / Time No Known Allergies Allergy Verified 12/16/18 16:09 ED Review of Systems ROS: Stated complaint: MENDOZA Other details as noted in HPI Comment: All other systems reviewed and negative ED Past Medical Hx - Past Medical History Previous Medical History?: Yes Hx Congestive Heart Failure: No Hx Diabetes: No Hx Asthma: No Hx COPD: Yes - Surgical History Past Surgical History?: Yes Additional Surgical History: back surgery for staph infection - Social History Smoking Status: Current Every Day Smoker Substance Use Type: Prescribed - Medications Home Medications: Home Medications Medication Instructions Recorded Confirmed Last Taken Type Albuterol Sulfate [Proventil Hfa] 6.7 gm IH Q4H PRN #1 can 02/03/19 Unknown Rx Azithromycin [Zithromax Z-PHOEBE] 250 mg PO DAILY #6 tablet 02/03/19 Unknown Rx Budesonide [Pulmicort Respules] 0.5 mg IH Q12HRT #30 nebu 02/03/19 Unknown Rx Prednisone [predniSONE 5 mg (6-Day 5 mg PO .TAPER #1 tab.ds.pk 02/03/19 Unknown Rx Pack, 21 Tabs)] guaiFENesin ER [Mucinex ER] 600 mg PO BID #10 tablet 02/03/19 Unknown Rx Benzonatate [Tessalon Perles] 100 mg PO Q8HR #20 capsule 09/02/19 Unknown Rx predniSONE [Deltasone] 50 mg PO QDAY #5 tab 09/02/19 Unknown Rx ED Physical Exam - General Limitations: No Limitations General appearance: alert, in no apparent distress - Head Head exam: Present: atraumatic, normocephalic - Eye Eye exam: Present: normal appearance, PERRL, EOMI Pupils: Present: normal accommodation - ENT ENT exam: Present: normal exam, normal orophraynx, mucous membranes moist - Neck Neck exam: Present: normal inspection - Respiratory Respiratory exam: Present: normal lung sounds bilaterally. Absent: respiratory distress, chest wall tenderness, accessory muscle use - Cardiovascular Cardiovascular Exam: Present: regular rate, normal rhythm. Absent: systolic murmur, diastolic murmur, rubs, gallop - GI/Abdominal GI/Abdominal exam: Present: soft, normal bowel sounds. Absent: distended, tenderness, guarding, hyperactive bowel sounds, hypoactive bowel sounds - Extremities Exam Extremities exam: Present: normal inspection, full ROM, normal capillary refill - Back Exam Back exam: Present: normal inspection, full ROM. Absent: CVA tenderness (R), CVA tenderness (L), muscle spasm, paraspinal tenderness - Neurological Exam Neurological exam: Present: alert, oriented X3, CN II-XII intact, normal gait, motor sensory deficit - Psychiatric Psychiatric exam: Present: normal affect, anxious. Absent: flat affect, manic, suicidal ideation - Skin Skin exam: Present: warm, dry, intact, normal color. Absent: rash, cyanosis, diaphoretic, erythema ED Course Vital Signs 09/02/19 08:35 Temperature 98.7 F Pulse Rate 91 H Respiratory 20 Rate Blood Pressure 143/79 O2 Sat by Pulse 96 Oximetry ED Medical Decision Making - Radiology Data Radiology results: report reviewed (normal) - Medical Decision Making 59-year-old female with a reported history of COPD seen by her primary care doctor on yesterday not yet able to fill her medication to pharmacy closing presenting with cough and congestion and wheezing apparent to be very anxious and almost hyperventilating. She was treated accordingly with steroids in conjunction with Ativan and John's symptoms have significantly improved the tingling to her fingers has totally resolved and her Restoril status had returned to normal. Her chest x-ray was performed and was normal. Advised on the importance of following up with primary care and starting the home medications that were prescribed to her as well. Been advised she can return to emergency department she feels her condition is worsening did not see any urgent or a emergent processes at current Critical care attestation.: If time is entered above; I have spent that time in minutes in the direct care of this critically ill patient, excluding procedure time. ED Disposition Clinical Impression: Cough in adult patient, Anxiety Disposition: DC-01 TO HOME OR SELFCARE Is pt being admited?: No Does the pt Need Aspirin: No Condition: Stable Instructions: Hyperventilation (ED), Anxiety (ED), Acute Cough (ED) Additional Instructions: Please be sure to fill the medication she received done yesterday and formal. Pulmicort, albuterol, Dulera Prescriptions: predniSONE [Deltasone] 50 mg PO QDAY #5 tab Benzonatate [Tessalon Perles] 100 mg PO Q8HR #20 capsule [facility] - 3-5 Days
== END 2019-09-02 12:55 | disposition home or self-care (01) ==
LOC: ED 08:34
DX: R05 Cough (principal); F41.9 Anxiety disorder, unspecified; J44.9 Chronic obstructive pulmonary disease, unspecified; F17.200 Nicotine dependence, unspecified, uncomplicated; Z98.890 Other specified postprocedural states; Z79.899 Other long term (current) drug therapy
CPT/HCPCS: 71046

== ENCOUNTER 2021-10-29 14:02 | Outpatient (CLI) | payer OTHER | END 2021-10-29 14:03 | disposition home or self-care (01) | LOC: PF 14:02 | PROVIDERS: ATTEND Internal Medicine | DX: Z02.71 Encounter for disability determination (principal) | CPT/HCPCS: 94010 ==

== ENCOUNTER 2021-12-02 11:11 | Emergency (ER) | payer SELFPAY ==
[2021-12-02 11:37] VITALS: BP 160/75
[2021-12-02] MEDS ORDERED: dexAMETHasone 4 MG/ML VIAL IM ONE (17:40)
[2021-12-02] MEDS ORDERED: KETOROLAC 60 MG/2 ML INJ IM ONE (17:40)
--- NOTE | 2021-12-02 18:34 | Emergency Department Report ---
ED General Adult HPI - General Chief complaint: Pain General Stated complaint: LEG HIP PAIN Time Seen by Provider: 12/02/21 17:37 Source: patient Mode of arrival: Ambulatory Limitations: No Limitations - History of Present Illness Initial comments: LEFT HIP PAIN -: Gradual, month(s) Location: buttocks, right, lower extremity Radiation: non-radiation Severity scale (0 -10): 10 Quality: aching Consistency: constant Improves with: none Worsens with: none - Related Data Previous Rx's Medication Instructions Recorded Last Taken Type Albuterol Sulfate [Proventil Hfa] 6.7 gm IH Q4H PRN #1 can 02/03/19 Unknown Rx Azithromycin [Zithromax Z-PHOEBE] 250 mg PO DAILY #6 tablet 02/03/19 Unknown Rx Budesonide [Pulmicort Respules] 0.5 mg IH Q12HRT #30 nebu 02/03/19 Unknown Rx Prednisone [predniSONE 5 mg (6-Day 5 mg PO .TAPER #1 tab.ds.pk 02/03/19 Unknown Rx Pack, 21 Tabs)] guaiFENesin ER [Mucinex ER] 600 mg PO BID #10 tablet 02/03/19 Unknown Rx Benzonatate [Tessalon Perles] 100 mg PO Q8HR #20 capsule 09/02/19 Unknown Rx predniSONE [Deltasone] 50 mg PO QDAY #5 tab 09/02/19 Unknown Rx Acetaminophen/Codeine [Tylenol 1 tab PO Q6H PRN #14 tab 12/02/21 Unknown Rx /Codeine # 3 tab] Allergies Allergy/AdvReac Type Severity Reaction Status Date / Time No Known Allergies Allergy Verified 12/16/18 16:09 ED Review of Systems ROS: Stated complaint: LEG HIP PAIN Other details as noted in HPI Constitutional: denies: chills, fever Eyes: denies: eye pain, eye discharge, vision change ENT: denies: ear pain, throat pain Respiratory: denies: cough, shortness of breath, wheezing Cardiovascular: denies: chest pain, palpitations Endocrine: no symptoms reported Gastrointestinal: denies: abdominal pain, nausea, diarrhea Genitourinary: denies: urgency, dysuria, discharge Musculoskeletal: denies: back pain, joint swelling, arthralgia Skin: denies: rash, lesions Neurological: denies: headache, weakness, paresthesias Psychiatric: denies: anxiety, depression Hematological/Lymphatic: denies: easy bleeding, easy bruising ED Past Medical Hx - Past Medical History Hx Congestive Heart Failure: No Hx Diabetes: No Hx Asthma: No Hx COPD: Yes - Surgical History Additional Surgical History: back surgery for staph infection - Social History Smoking Status: Current Every Day Smoker Substance Use Type: Prescribed - Medications Home Medications: Home Medications Medication Instructions Recorded Confirmed Last Taken Type Albuterol Sulfate [Proventil Hfa] 6.7 gm IH Q4H PRN #1 can 02/03/19 Unknown Rx Azithromycin [Zithromax Z-PHOEBE] 250 mg PO DAILY #6 tablet 02/03/19 Unknown Rx Budesonide [Pulmicort Respules] 0.5 mg IH Q12HRT #30 nebu 02/03/19 Unknown Rx Prednisone [predniSONE 5 mg (6-Day 5 mg PO .TAPER #1 tab.ds.pk 02/03/19 Unknown Rx Pack, 21 Tabs)] guaiFENesin ER [Mucinex ER] 600 mg PO BID #10 tablet 02/03/19 Unknown Rx Benzonatate [Tessalon Perles] 100 mg PO Q8HR #20 capsule 09/02/19 Unknown Rx predniSONE [Deltasone] 50 mg PO QDAY #5 tab 09/02/19 Unknown Rx Acetaminophen/Codeine [Tylenol 1 tab PO Q6H PRN #14 tab 12/02/21 Unknown Rx /Codeine # 3 tab] ED Physical Exam - General Limitations: No Limitations General appearance: alert, in no apparent distress - Head Head exam: Present: atraumatic, normocephalic - Eye Eye exam: Present: normal appearance - ENT ENT exam: Present: mucous membranes moist - Neck Neck exam: Present: normal inspection - Respiratory Respiratory exam: Present: normal lung sounds bilaterally. Absent: respiratory distress - Cardiovascular Cardiovascular Exam: Present: regular rate, normal rhythm. Absent: systolic murmur, diastolic murmur, rubs, gallop - GI/Abdominal GI/Abdominal exam: Present: soft, normal bowel sounds - Extremities Exam Extremities exam: Present: normal inspection - Back Exam Back exam: Present: normal inspection - Neurological Exam Neurological exam: Present: alert, oriented X3 - Psychiatric Psychiatric exam: Present: normal affect, normal mood - Skin Skin exam: Present: warm, dry, intact, normal color. Absent: rash ED Course Vital Signs 12/02/21 11:34 Temperature 98.4 F Pulse Rate 71 Respiratory 16 Rate Blood Pressure 160/75 [Left] O2 Sat by Pulse 96 Oximetry Critical care attestation.: If time is entered above; I have spent that time in minutes in the direct care of this critically ill patient, excluding procedure time. ED Disposition Clinical Impression: Sciatica Disposition: HOME / SELF CARE / HOMELESS Is pt being admited?: No Does the pt Need Aspirin: No Condition: Stable Instructions: Radicular Pain Referrals: JANE MONTE MD [Primary Care Provider] - 3-5 Days
== END 2021-12-02 19:00 | disposition home or self-care (01) ==
LOC: ED 11:11
DX: M54.32 Sciatica, left side (principal); J44.1 Chronic obstructive pulmonary disease with (acute) exacerbation; F17.200 Nicotine dependence, unspecified, uncomplicated
CPT/HCPCS: 96372; 99282; J1100; J1885